=== PATIENT | female | born 1940 | race Caucasian/White ===

== ENCOUNTER → 2017-01-23 | Outpatient (REF) | payer MEDICARE, OTHER | LOC: M SFHCCLAY 14:45 | PROVIDERS: ATTEND Family Medicine | DX: E11.42 Type 2 diabetes mellitus with diabetic polyneuropathy (principal) | CPT/HCPCS: 83036; G0463 ==

== ENCOUNTER → 2017-05-15 | Outpatient (REF) | payer MEDICARE, OTHER | LOC: M SFHCCLAY 16:46 | PROVIDERS: ATTEND Family Medicine | DX: E78.00 Pure hypercholesterolemia, unspecified (principal); Z53.8 Procedure and treatment not carried out for other reasons ==

== ENCOUNTER → 2017-06-26 | Outpatient (CLI) | payer MEDICARE, OTHER ==
--- NOTE | 2017-06-26 15:18 | REPMRS ---
Patient History The patient states she had a clinical breast exam in 05/29 Patient is postmenopausal and has history of other cancer at age 71. Family history of prostate cancer in father at age 65, breast cancer in mother at age 55, endometrial cancer in paternal aunt at age 50, colorectal cancer in maternal cousin under age 50, unknown cancer in brother, and breast cancer in daughter under age 50. Digital Woman Screen Mammo: June 26, 2017 - Exam #: [id number] Bilateral CC and MLO view(s) were taken. Technologist: Angie Key, Technologist Prior study comparison: February 29, 2016, digital woman screen mammo performed at [facility] [employer] [facility] [employer] November 24, 2014, digital woman screen mammo performed at [facility] [employer] to [employer] FINDINGS: There are scattered fibroglandular densities. There has been no change in the appearance of the mammogram from the prior studies. There is a mild amount of residual fibroglandular tissue which is fairly symmetric. There is no interval development of dominant mass, architectural distortion, or clustered microcalcification suggestive of malignancy. ASSESSMENT: BI-RADS/ACR category 1 mammogram. Negative. Recommendation Routine screening mammogram in 1 year (for women over age 40). This mammogram was interpreted with the aid of an FDA-approved computer-aided dectection system. Electronically Signed By: Zen Stanford MD 06/26/17 [id number]
== END ==
LOC: M WHC 13:22
PROVIDERS: ATTEND Family Medicine
DX: Z12.31 Encounter for screening mammogram for malignant neoplasm of breast (principal); Z78.0 Asymptomatic menopausal state

== ENCOUNTER → 2018-06-28 | Outpatient (CLI) | payer MEDICARE, OTHER | LOC: M WHC 12:43 | DX: Z12.31 Encounter for screening mammogram for malignant neoplasm of breast (principal); Z80.3 Family history of malignant neoplasm of breast; Z80.42 Family history of malignant neoplasm of prostate; Z80.0 Family history of malignant neoplasm of digestive organs | CPT/HCPCS: 77067 ==

== ENCOUNTER → 2018-10-15 | Outpatient (REF) | payer MEDICARE, OTHER | LOC: M LAB REF 13:13 | PROVIDERS: ATTEND Internal Medicine Nephrology | DX: E87.1 Hypo-osmolality and hyponatremia (principal) ==

== ENCOUNTER → 2019-07-15 | Outpatient (REF) | payer MEDICARE, OTHER ==
[2019-07-16 13:28] LABS: BLOOD UREA NITROGEN 20 MG/DL (7-18); CALCIUM LEVEL 9.7 MG/DL (8.8-10.2); CARBON DIOXIDE LEVEL 29 MEQ/L (21-32); CHLORIDE LEVEL 99 MEQ/L (98-107); CREATININE FOR GFR 0.63 MG/DL (0.55-1.30); GLOMERULAR FILTRATION RATE > 60.0 (>32); GLUCOSE, FASTING 114 MG/DL (70-100); POTASSIUM SERUM 4.3 MEQ/L (3.5-5.1); SODIUM LEVEL 135 MEQ/L (136-145)
== END ==
LOC: M SFHCCLAY 14:56
PROVIDERS: ATTEND Family Medicine
DX: I11.9 Hypertensive heart disease without heart failure (principal); E11.40 Type 2 diabetes mellitus with diabetic neuropathy, unspecified

== ENCOUNTER → 2019-07-15 | Outpatient (REF) | payer MEDICARE, OTHER | LOC: M LAB REF 15:49 | PROVIDERS: ATTEND Physician Assistant Medical | DX: E55.9 Vitamin D deficiency, unspecified (principal) ==

== ENCOUNTER → 2019-08-25 | Outpatient (CLI) | payer MEDICARE, OTHER ==
--- NOTE | 2019-08-25 13:21 | REPMRS ---
Patient History The patient states she had a clinical breast exam in Patient is postmenopausal and has history of other cancer at age 71. Family history of prostate cancer at age 65 in father, breast cancer at age 55 in mother, endometrial cancer at age 50 in paternal aunt, breast cancer under age 50 in daughter, colorectal cancer under age 50 in maternal cousin, prostate cancer at age 70 in brother. No Hormone Replacement Therapy Digital Woman Screen Mammo: August 25, 2019 - Exam #: [id number] Bilateral CC and MLO view(s) were taken. Technologist: Vivian Hyman, Technologist Prior study comparison: June 28, 2018, bilateral digital woman screen mammo performed at [facility] [place]. June 26, 2017, digital woman screen mammo performed at [facility] [place]. February 29, 2016, digital woman screen mammo performed at [facility] [place]. FINDINGS: There are scattered fibroglandular densities. There has been no change in the appearance of the mammogram from the prior studies. There is a mild amount of scattered fibroglandular density which is fairly symmetric. There is no interval development of dominant mass, architectural distortion, or grouped microcalcification suggestive of malignancy. 3-D tomosynthesis shows no additional findings. Assessment: BI-RADS/ACR category 1 mammogram. Negative Mammogram. Recommendation Routine screening mammogram of both breasts in 1 year (for women over age 40). This patient's Lifetime Breast Cancer Risk is estimated at 7.8 %. This mammogram was interpreted with the aid of an FDA-approved computer-aided dectection system. Electronically Signed By: Gualberto Pino MD 08/25/19 [id number]
== END ==
LOC: M WHC 12:20
PROVIDERS: ATTEND Nurse Practitioner Family
DX: Z12.31 Encounter for screening mammogram for malignant neoplasm of breast (principal); Z78.0 Asymptomatic menopausal state; Z85.9 Personal history of malignant neoplasm, unspecified; Z80.3 Family history of malignant neoplasm of breast; Z80.0 Family history of malignant neoplasm of digestive organs

== ENCOUNTER → 2020-06-16 | Outpatient (CLI) | payer MEDICARE, OTHER ==
--- NOTE | 2020-06-16 15:32 | REP ---
INDICATION: N93.8 DUB. COMPARISON: None. TECHNIQUE: Transabdominal and transvaginal scanning were performed. FINDINGS: Uterine dimensions are normal at 6.9 x 3.7 x 4.7 cm. On transvaginal imaging, there appears to be endometrial fluid distending the endometrial cavity. No mass lesion is seen. There is some blood flow visible along the endometrium on Doppler interrogation. Endometrial neoplasia possibly with hydrometra must be suspected.. No free fluid is seen in the cul-de-sac. Visualized bladder colindres are smooth. Neither ovary could be visualized transabdominally or transvaginally. No free fluid or adnexal mass or cyst is seen. IMPRESSION: Abnormal fluid distended endometrium. 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 I cannot exclude endometrial malignancy.. <Electronically signed by Gualberto Pino > 06/16/20 1526
== END ==
LOC: M WHC 12:24
PROVIDERS: ATTEND Family Medicine
DX: N93.8 Other specified abnormal uterine and vaginal bleeding (principal)

== ENCOUNTER → 2020-08-08 | Outpatient (CLI) | payer MEDICARE, OTHER ==
[~2020-08-08] MED LIST: ACET650T15 PO; ADV250INH INH; CALC600C3 PO; CARV6.25 PO; ECOT81TA5 PO; EZET10TA21 PO; FURO20TA2 PO; METF-838 PO; MULTTAB61 PO; NEXI40CA PO; NORT10CA2 PO; OCUVTAB8 PO; PROAAER10 INH; RAME8TAB2 PO; SLOWTAB2 PO; SPIR-10 PO; TELM1TAB37 PO; VITA-122 PO; VITA500C24 PO
== END ==
LOC: M LABSMTC 08:52
PROVIDERS: ATTEND Anesthesiology
DX: Z01.812 Encounter for preprocedural laboratory examination (principal); Z20.828 Contact with and (suspected) exposure to other viral communicable diseases

== ENCOUNTER 2020-08-11 07:36 | Day surgery (SDC) | payer MEDICARE, OTHER ==
[~2020-08-11] VITALS: Ht 157.5 cm; Wt 62.1 kg
[~2020-08-11 07:36] MED LIST changes: +LR 1,000 ML IV ONE
[2020-08-11 07:59] LABS: BASO # 0.1 10^3/uL (0.0-0.2); BASO % 0.7 % (0.0-1.0); HEMATOCRIT 43.5 % (36.0-47.0); HEMOGLOBIN 13.7 g/dl (12.0-15.5); LYMPH % 29.8 % (24.0-44.0); MEAN CORPUSCULAR HEMOGLOBIN 31.3 pg (27.0-33.0); MEAN CORPUSCULAR HGB CONC 31.5 g/dl (32.0-36.5); MEAN CORPUSCULAR VOLUME 99.3 fl (80.0-96.0); MONO # 0.9 10^3/uL (0.0-0.8); MONO % 12.8 % (0.0-5.0); NEUTROPHILS # 3.8 10^3/uL (1.5-8.5); NEUTROPHILS % 56.1 % (36.0-66.0); PLATELET COUNT, AUTOMATED 284 10^3/uL (150-450); RED BLOOD COUNT 4.38 10^6/uL (4.00-5.40); WHITE BLOOD COUNT 6.8 10^3/uL (4.0-10.0)
[2020-08-11] MEDS ORDERED: LIDOCAINE 2% 100MG/5ML SDV (FOR ANES.) As Ordered ONE (09:04)
[2020-08-11] MEDS ORDERED: fentaNYL 100 MCG/2 ML INJECTION (J3010) As Ordered ONE ×2 (09:04→09:56)
[2020-08-11] MEDS ORDERED: KETOROLAC 60MG 2ML VIAL As Ordered ONE (09:04)
[2020-08-11] MEDS ORDERED: dexameTHASONE 4 MG/ML 1ML VIAL (J1100 PER 1MG) As Ordered ONE (09:04)
[2020-08-11] MEDS ORDERED: ONDANSETRON 4MG/2ML VIAL As Ordered ONE (09:04)
[2020-08-11] MEDS ORDERED: propofoL 200 MG/20 ML VIAL As Ordered ONE (09:04)
[2020-08-11] MEDS ORDERED: ePHEDrine SULFATE 25 MG/5 ML(5MG/ML) SYRINGE As Ordered ONE (09:17)
--- NOTE | 2020-08-11 09:34 | ROOPDOC ---
[facility] Report Of Operation Report of Operation DATE OF PROCEDURE: 08/11/20 DATE OF PROCEDURE: PREPROCEDURE DIAGNOSES: postmenopausal bleeding. POSTPROCEDURE DIAGNOSES: Same. PROCEDURE: Hysteroscopy, D&C. SURGEON: Ja Song MD ANESTHESIA: Gen. via LMA. ESTIMATED BLOOD LOSS: Approximately 10 mL. COMPLICATIONS: None. FINDINGS: Areas of thick, irregular endometrial tissue at the fundus, and posterior uterus; mildly enlarged uterus, cervical stenosis PROCEDURE NOTE: Patient taken to the operative room where LMA anesthesia was induced. She was prepped draped sterile fashion in dorsal lithotomy position. The catheter was inserted into the bladder. Speculum was placed in the vagina. The anterior lip of the cervix was grasped with tenaculum. Cervix dilated with tapered dilators. Lacrimal probes werer used to initiate the dilation due to cervical stenosis. A diagnostic hysteroscope using normal saline as the distention media was inserted through the internal os. Visualization the endometrial cavity revealed findings noted above. Sharp curettage was performed. Good hemostasis was noted. All instruments removed. Sponges counts are correct. JA SONG MD Aug 11, 2020 09:33
[2020-08-11] MEDS ORDERED: ACETAMINOPHEN 500 MG TAB As Ordered ONE (09:58)
[2020-08-11] MEDS ORDERED: METOCLOPRAMIDE INJ 10MG/2ML VIAL (J2765 PER 1) IV PRN (10:30)
[2020-08-11] MEDS ORDERED: fentaNYL 100 MCG/2 ML INJECTION (J3010) IV PRN (10:30)
[2020-08-11] MEDS ORDERED: LR 1,000 ML IV SCH ×2 (10:30)
[2020-08-11] MEDS ORDERED: PERCOCET 5MG/325MG TAB PO PRN (10:30)
[2020-08-11] MEDS ORDERED: ONDANSETRON 4MG/2ML VIAL IV PRN (10:30)
[2020-08-11] MEDS ORDERED: ACETAMINOPHEN 500 MG TAB PO ONE (10:30)
[2020-08-11] MEDS ORDERED: LABETALOL 100MG/20ML VIAL As Ordered ONE (10:33)
[2020-08-11] MEDS: LABETALOL 100MG/20ML VIAL IV SCH ×4 (10:35→10:50)
[2020-08-11 10:50] VITALS: BP 195/91
[2020-08-11 12:16] VITALS: BP 158/86
== END 2020-08-11 12:22 | disposition home or self-care (01) ==
LOC: M SDC 07:36
PROVIDERS: ATTEND Specialist
DX: N95.0 Postmenopausal bleeding (principal); I10 Essential (primary) hypertension; E11.9 Type 2 diabetes mellitus without complications; E78.5 Hyperlipidemia, unspecified; H18.519 Endothelial corneal dystrophy, unspecified eye; J45.909 Unspecified asthma, uncomplicated; G62.9 Polyneuropathy, unspecified; K21.9 Gastro-esophageal reflux disease without esophagitis; M48.00 Spinal stenosis, site unspecified; R23.3 Spontaneous ecchymoses; Z79.84 Long term (current) use of oral hypoglycemic drugs; Z79.899 Other long term (current) drug therapy; Z85.828 Personal history of other malignant neoplasm of skin; Z88.2 Allergy status to sulfonamides; Z88.5 Allergy status to narcotic agent; Z88.8 Allergy status to other drugs, medicaments and biological substances; Z95.5 Presence of coronary angioplasty implant and graft
CPT/HCPCS: 36415; 58558; 85025; 88305; J1100; J1885; J2405; J3010

== ENCOUNTER → 2020-09-09 | Outpatient (CLI) | payer MEDICARE, OTHER ==
[~2020-09-09] MED LIST changes: -LR 1,000 ML IV ONE
--- NOTE | 2020-09-09 14:11 | REPMRS ---
Patient History The patient states she had a clinical breast exam in August 2020. Patient is postmenopausal, has history of endometrial cancer at age 80, and has history of other cancer at age 71. Family history of prostate cancer at age 65 in father, breast cancer at age 55 in mother, endometrial cancer at age 50 in paternal aunt, breast cancer under age 50 in daughter, colorectal cancer under age 50 in maternal cousin, prostate cancer at age 70 in brother. No Hormone Replacement Therapy Digital Woman Screen Mammo: September 09, 2020 - Exam #: [id number] Bilateral CC and MLO view(s) were taken. Technologist: Irlanda Shaikh, Technologist Prior study comparison: August 25, 2019, bilateral digital woman screen mammo performed at [facility]. June 28, 2018, bilateral digital woman screen mammo performed at [facility]. June 26, 2017, digital woman screen mammo performed at [facility]. FINDINGS: There are scattered fibroglandular densities. The Volpara volumetric breast density category is:B. There has been no change in the appearance of the mammogram from the prior studies. There is a mild amount of scattered fibroglandular density which is fairly symmetric. There is no interval development of dominant mass, architectural distortion, or grouped microcalcification suggestive of malignancy. 3-D tomosynthesis shows no additional findings. Assessment: BI-RADS/ACR category 1 mammogram. Negative Mammogram. Recommendation Routine screening mammogram of both breasts in 1 year (for women over age 40). This patient's [facility] Lifetime Breast Cancer Risk is estimated at 6.4 %. This mammogram was interpreted with the aid of an FDA-approved computer-aided dectection system. Electronically Signed By: Gualberto Pino MD 09/09/20 [id number]
== END ==
LOC: M WHC 13:04
PROVIDERS: ATTEND Family Medicine
DX: Z12.31 Encounter for screening mammogram for malignant neoplasm of breast (principal); Z85.42 Personal history of malignant neoplasm of other parts of uterus; Z80.3 Family history of malignant neoplasm of breast

== ENCOUNTER → 2021-03-09 | Outpatient (CLI) | payer MEDICARE, OTHER ==
[~2021-03-09] MED LIST changes: +GASTROGRAFIN SOLUTION 30ML (Q9963) As Ordered ONE; +ISOVUE-370 76% 100ML VIAL As Ordered ONE; -VITA-122 PO; +VITA-168 PO
--- NOTE | 2021-03-09 14:49 | REP ---
INDICATION: RESTAGE ENDOMETRIAL CA. COMPARISON: 05/01/2008. I have not been made aware of a more recent prior examination. TECHNIQUE: Oral Gastrografin mixture per our bowel contrast protocol followed by bolus 100 mL Isovue 370 and scanning through the abdomen and pelvis. FINDINGS: CT abdomen: Lung bases without acute finding. There is a stable Bochdalek's hernia posteriorly at the left lung base. Heart size not enlarged there is no pericardial thickening or effusion. There is moderate-sized hiatal hernia evident. Liver is without focal hepatic mass or biliary dilatation is not grossly enlarged. There are few calcifications in the spleen but no splenomegaly. Gallbladder shows no calcified stone or mass. Pancreas was unremarkable. Adrenal glands are intact kidneys show symmetric pattern of enhancement and a couple of small cysts on the left with a large extrarenal pelvis and some mild hydronephrosis. This is increased in size since the previous study. No definite stone or solid mass in the kidneys or that extrarenal pelvis. The aorta is calcified tortuous but without aneurysm. No periaortic, other retroperitoneal or mesenteric pathologic sized lymphadenopathy. Stool throughout the colon from rectum to cecum is in moderate to the to large volumes representing some degree of constipation oral contrast seen throughout small bowel loops without dilatation, wall thickening or mass no mesenteric edema. No perforation or free air in the abdomen or pelvis. Is no abdominal or pelvic ascites. Bone windows show advanced degenerative disc disease with vacuum phenomenon and spondylosis as well as facet arthropathy in the lower lumbar spine. No acute compression deformity or destructive lesion. Visualized ribs intact. CT pelvis: The sacrum, SI joints, pelvis and hips show some mild degenerative changes without destructive lesion or fractures. Small bowel loops in the deep pelvis unremarkable. There are no inflammatory changes about the cecum. Uterus is absent the vaginal cuff is intact. Bladder is nearly empty but no wall thickening, mass or stone evident. I see no pelvic or adnexal mass. There is no inguinal or pelvic lymphadenopathy. Omental fat at distends the inguinal canal on the left but no bowel herniation. No ventral hernia. IMPRESSION: 1. Status post hysterectomy without the pelvic or adnexal mass. There is no abdominal or pelvic adenopathy, ascites, metastatic disease in the liver or other acute finding. No CT evidence to suggest metastatic disease at this time. 2. Moderate-sized hiatal hernia. A Bochdalek's hernia along the posterior margin of the diaphragm in the left base and chronic degenerative changes in the spine are again seen. <Electronically signed by Jose Enrique Lawson > 03/09/21 [id number]
== END ==
LOC: M RAD 09:55
PROVIDERS: ATTEND Nurse Practitioner
DX: C54.1 Malignant neoplasm of endometrium (principal)
CPT/HCPCS: 74177; Q9963; Q9967

== ENCOUNTER → 2021-07-14 | Outpatient (REF) | payer MEDICARE, OTHER ==
[~2021-07-14] MED LIST changes: -GASTROGRAFIN SOLUTION 30ML (Q9963) As Ordered ONE; -ISOVUE-370 76% 100ML VIAL As Ordered ONE
== END ==
LOC: M SFHCCLAY 11:15
PROVIDERS: ATTEND Family Medicine
DX: R19.7 Diarrhea, unspecified (principal)

== ENCOUNTER 2021-08-10 13:04 | Outpatient (CLI) | payer MEDICARE, OTHER ==
[~2021-08-10] VITALS: Ht 157.5 cm; Wt 66.3 kg
[~2021-08-10 13:04] MED LIST changes: +diphenhydrAMINE 50MG/ML VIAL (J1200) IM PRN
[2021-08-10] MEDS ORDERED: BEZLOTOXUMAB in NS 100 ML OVER 1 HR IV ONE (13:30)
[2021-08-10 13:35] VITALS: BP 165/83
[2021-08-10 15:20] VITALS: BP 135/98
== END 2021-08-10 15:40 | disposition home or self-care (01) ==
LOC: M INFU 13:04
PROVIDERS: ATTEND Family Medicine
DX: A04.71 Enterocolitis due to Clostridium difficile, recurrent (principal); Z88.2 Allergy status to sulfonamides; Z88.8 Allergy status to other drugs, medicaments and biological substances
CPT/HCPCS: 96365; J0565

== ENCOUNTER → 2021-10-12 | Outpatient (CLI) | payer MEDICARE, OTHER ==
[~2021-10-12] MED LIST changes: -diphenhydrAMINE 50MG/ML VIAL (J1200) IM PRN
== END ==
LOC: M WHC 12:12
PROVIDERS: ATTEND Family Medicine
DX: R92.2 Inconclusive mammogram (principal); N63.21 Unspecified lump in the left breast, upper outer quadrant

== ENCOUNTER → 2021-10-26 | Outpatient (CLI) | payer MEDICARE, OTHER | LOC: M WHC 12:17 | PROVIDERS: ATTEND Family Medicine | DX: R92.2 Inconclusive mammogram (principal); N63.21 Unspecified lump in the left breast, upper outer quadrant | CPT/HCPCS: 77065; G0279 ==

== ENCOUNTER → 2022-01-11 | Outpatient (REF) | payer MEDICARE, OTHER ==
[2022-01-11 22:00] LABS: APPEARANCE, URINE HAZY (CLEAR); BACTERIA, URINE AUTO 1+ (NEGATIVE); BILIRUBIN, URINE AUTO NEGATIVE (NEGATIVE); BLOOD, URINE BLOOD NEGATIVE (NEGATIVE); COLOR, URINE YELLOW (YELLOW); GLUCOSE, URINE (UA) AUTO NEGATIVE (NEGATIVE); KETONE, URINE AUTO NEGATIVE (NEGATIVE); LEUKOCYTE ESTERASE, URINE AUTO TRACE (NEGATIVE); MUCUS, URINE SMALL (NEGATIVE); NITRITE, URINE AUTO NEGATIVE (NEGATIVE); PROTEIN, URINE AUTO 1+ mg/dL (NEGATIVE); RBC, URINE AUTO 2 /HPF (0-3); SPECIFIC GRAVITY URINE AUTO 1.026 (1.002-1.035); SQUAMOUS EPITHELIAL CELL UR AU 0 /HPF (0-6); UROBILINOGEN, URINE AUTO 0.2 mg/dL (0.0-2.0); WBC, URINE AUTO 14 /HPF (0-3)
== END ==
LOC: M LAB REF 21:09
PROVIDERS: ATTEND Physician Assistant
DX: N39.0 Urinary tract infection, site not specified (principal)

== ENCOUNTER → 2022-01-17 | Outpatient (REF) | payer MEDICARE, OTHER ==
[2022-01-18 12:43] LABS: CLOSTRIDIUM DIFFICILE PCR NEGATIVE (NEGATIVE)
== END ==
LOC: M SFHCPLAZ 11:12
PROVIDERS: ATTEND Internal Medicine Infectious Disease
DX: A04.72 Enterocolitis due to Clostridium difficile, not specified as recurrent (principal)

== ENCOUNTER → 2022-01-23 | Outpatient (REF) | payer MEDICARE, OTHER | LOC: M SFHCCLAY 11:55 | PROVIDERS: ATTEND Nurse Practitioner Family | DX: N30.00 Acute cystitis without hematuria (principal) ==

== ENCOUNTER → 2022-01-23 | Outpatient (CLI) | payer MEDICARE, OTHER ==
[2022-01-23 14:41] LABS: HEMATOCRIT 40.1 % (36.0-47.0); HEMOGLOBIN 13.7 g/dl (12.0-15.5); MEAN CORPUSCULAR HEMOGLOBIN 33.5 pg (27.0-33.0); MEAN CORPUSCULAR HGB CONC 34.2 g/dl (32.0-36.5); PLATELET COUNT, AUTOMATED 299 10^3/uL (150-450); RED BLOOD COUNT 4.09 10^6/uL (4.00-5.40); WHITE BLOOD COUNT 8.2 10^3/uL (4.0-10.0)
[2022-01-23 15:13] LABS: ALBUMIN 3.8 GM/DL (3.2-5.2); ALT/SGPT 31 U/L (12-78); BILIRUBIN,TOTAL 0.4 MG/DL (0.2-1.0); BLOOD UREA NITROGEN 19 MG/DL (7-18); CALCIUM LEVEL 10.1 MG/DL (8.8-10.2); CARBON DIOXIDE LEVEL 25 MEQ/L (21-32); CHLORIDE LEVEL 99 MEQ/L (98-107); CREATININE FOR GFR 0.63 MG/DL (0.55-1.30); GLOMERULAR FILTRATION RATE > 60.0 (>32); GLUCOSE, FASTING 107 MG/DL (70-100); POTASSIUM SERUM 4.4 MEQ/L (3.5-5.1); SODIUM LEVEL 131 MEQ/L (136-145); TOTAL PROTEIN 7.3 GM/DL (6.4-8.2)
== END ==
LOC: M RAD 13:15
PROVIDERS: ATTEND Nurse Practitioner Family
DX: N13.30 Unspecified hydronephrosis (principal); Q61.02 Congenital multiple renal cysts; N30.00 Acute cystitis without hematuria

== ENCOUNTER → 2022-02-01 | Outpatient (REF) | payer MEDICARE, OTHER ==
[2022-02-01 18:35] LABS: APPEARANCE, URINE HAZY (CLEAR); BACTERIA, URINE AUTO NEGATIVE (NEGATIVE); BILIRUBIN, URINE AUTO NEGATIVE (NEGATIVE); BLOOD, URINE BLOOD NEGATIVE (NEGATIVE); COLOR, URINE AMBER (YELLOW); GLUCOSE, URINE (UA) AUTO NEGATIVE (NEGATIVE); KETONE, URINE AUTO TRACE mg/dL (NEGATIVE); LEUKOCYTE ESTERASE, URINE AUTO NEGATIVE (NEGATIVE); MUCUS, URINE SMALL (NEGATIVE); NITRITE, URINE AUTO NEGATIVE (NEGATIVE); PROTEIN, URINE AUTO NEGATIVE (NEGATIVE); RBC, URINE AUTO 1 /HPF (0-3); SPECIFIC GRAVITY URINE AUTO 1.027 (1.002-1.035); SQUAMOUS EPITHELIAL CELL UR AU 0 /HPF (0-6); UROBILINOGEN, URINE AUTO 0.2 mg/dL (0.0-2.0); WBC, URINE AUTO 1 /HPF (0-3)
== END ==
LOC: M SMT 16:56
PROVIDERS: ATTEND Nurse Practitioner Women's Health
DX: N20.0 Calculus of kidney (principal)

== ENCOUNTER → 2022-02-14 | Outpatient (CLI) | payer MEDICARE, OTHER | LOC: M PLAIMG 12:29 | PROVIDERS: ATTEND Nurse Practitioner Women's Health | DX: N20.0 Calculus of kidney (principal); N28.1 Cyst of kidney, acquired; Z90.710 Acquired absence of both cervix and uterus ==

== ENCOUNTER → 2022-04-03 | Outpatient (CLI) | payer MEDICARE, OTHER | LOC: M CARPUL 13:07 | PROVIDERS: ATTEND Family Medicine | DX: J45.909 Unspecified asthma, uncomplicated (principal) ==

== ENCOUNTER → 2022-07-21 | Outpatient (CLI) | payer MEDICARE, OTHER | LOC: M RAD 08:22 | PROVIDERS: ATTEND Nurse Practitioner Family | DX: I10 Essential (primary) hypertension (principal) ==

== ENCOUNTER → 2022-08-31 | Outpatient (CLI) | payer MEDICARE, OTHER ==
[2022-08-31 16:26] LABS: BLOOD UREA NITROGEN 19 MG/DL (9-23); CREATININE FOR GFR 0.57 MG/DL (0.55-1.30); GLOMERULAR FILTRATION RATE > 60.0 (>32)
== END ==
LOC: M LAB 15:02
PROVIDERS: ATTEND Surgery
DX: I15.0 Renovascular hypertension (principal)

== ENCOUNTER → 2022-09-05 | Outpatient (CLI) | payer MEDICARE, OTHER ==
[~2022-09-05] MED LIST changes: +ISOVUE-370 76% 100ML VIAL As Ordered ONE
== END ==
LOC: M RAD 17:13
PROVIDERS: ATTEND Surgery Vascular Surgery
DX: I15.0 Renovascular hypertension (principal)
CPT/HCPCS: 74174; Q9967

== ENCOUNTER 2022-10-10 09:20 | Emergency (ER) | payer MEDICARE, OTHER ==
[~2022-10-10] VITALS: Ht 154.9 cm; Wt 70.0 kg
[~2022-10-10 09:20] MED LIST changes: -HEPARIN 1,000UNITS/ML 10ML VIAL (FOR RADIOLOGY & DIALYSIS ONLY) As Ordered ONE; -ISOVUE-300 61% 100ML VIAL As Ordered ONE; -LIDOCAINE 1% MDV 20ML VIAL As Ordered ONE; -MIDAZOLAM INJ 2MG/2ML VIAL As Ordered ONE; -NITROGLYCERIN 0.4MG SUBL TABLET As Ordered ONE; -NS 1,000 ML IV SCH; -ceFAZolin 2 GM/D5W 50 ML IV BAG As Ordered ONE; -ceFAZolin SOD 2 GM in IV 1 EA IV ONE; -diphenhydrAMINE 50MG/ML VIAL As Ordered ONE; -fentaNYL 100 MCG/2 ML INJECTION As Ordered ONE; -hydrALAZINE 20MG/ML 1ML VIAL As Ordered ONE; -hydrALAZINE 20MG/ML 1ML VIAL IV STA
[2022-10-10] MEDS ORDERED: NS 500 ML IV ONE (09:30)
[2022-10-10 10:01] LABS: BASO # 0.1 10^3/uL (0.0-0.2); BASO % 0.7 % (0.0-1.0); LYMPH # 1.7 10^3/uL (1.5-5.0); LYMPH % 25.3 % (24.0-44.0); MEAN CORPUSCULAR HEMOGLOBIN 31.8 pg (27.0-33.0); MEAN CORPUSCULAR HGB CONC 33.3 g/dl (32.0-36.5); MEAN CORPUSCULAR VOLUME 95.3 fl (80.0-96.0); MONO # 0.8 10^3/uL (0.0-0.8); MONO % 12.3 % (2.0-8.0); NEUTROPHILS # 4.2 10^3/uL (1.5-8.5); NEUTROPHILS % 61.3 % (36.0-66.0); PLATELET COUNT, AUTOMATED 249 10^3/uL (150-450); RED BLOOD COUNT 3.59 10^6/uL (4.00-5.40); WHITE BLOOD COUNT 6.8 10^3/uL (4.0-10.0)
[2022-10-10 10:03] LABS: HEMATOCRIT 34.2 % (36.0-47.0); HEMOGLOBIN 11.4 g/dl (12.0-15.5)
[2022-10-10 10:13] LABS: CK-MB VALUE MASS 5.4 NG/ML (<3.6)
[2022-10-10 10:14] LABS: CPK CREATINE PHOSPHOKINASE 171 U/L (34-145); MB/CK RELATIVE INDEX 3.15 (< OR =4)
[2022-10-10 10:15] LABS: BLOOD UREA NITROGEN 24 MG/DL (9-23); CALCIUM LEVEL 8.4 MG/DL (8.3-10.6); CARBON DIOXIDE LEVEL 24 MMOL/L (20-31); CHLORIDE LEVEL 106 MMOL/L (98-107); CREATININE FOR GFR 0.54 MG/DL (0.55-1.30); GLOMERULAR FILTRATION RATE > 60.0 (>32); GLUCOSE, FASTING 142 MG/DL (74-106); POTASSIUM SERUM 3.6 MMOL/L (3.5-5.1); SODIUM LEVEL 138 MMOL/L (136-145)
[2022-10-10] MEDS ORDERED: ATROPINE SULF 1MG/10ML SYRINGE ONE (10:43)
[2022-10-10 12:00] VITALS: BP 186/89
[2022-10-18] MEDS ORDERED: MECL1TAB31 PO (10:25)
[2022-10-18] MEDS ORDERED: NITR0.4S14 PO (10:25)
[2022-10-18] MEDS ORDERED: ALBU90AE INH (10:25)
[2022-10-18] MEDS ORDERED: CLOP75TA2 PO (10:25)
[2022-10-18] MEDS ORDERED: MICA80TA PO (10:25)
[2022-10-18] MEDS ORDERED: FAMO20TA PO (10:25)
[2022-10-18] MEDS ORDERED: DOCU100C16 PO (10:25)
[2022-11-06] MEDS ORDERED: HYDROCORTISONE 100MG/2ML VIAL IV ONE (17:10)
== END 2022-10-10 12:35 | disposition home or self-care (01) ==
LOC: M ED 09:20
DX: T88.7XXA Unspecified adverse effect of drug or medicament, initial encounter (principal); I95.2 Hypotension due to drugs; I12.9 Hypertensive chronic kidney disease with stage 1 through stage 4 chronic kidney disease, or unspecified chronic kidney disease; I25.9 Chronic ischemic heart disease, unspecified; E11.9 Type 2 diabetes mellitus without complications; J45.909 Unspecified asthma, uncomplicated; K21.9 Gastro-esophageal reflux disease without esophagitis; Z86.79 Personal history of other diseases of the circulatory system; Z88.2 Allergy status to sulfonamides; Z88.5 Allergy status to narcotic agent; Z88.8 Allergy status to other drugs, medicaments and biological substances; Z79.52 Long term (current) use of systemic steroids; Z79.810 Long term (current) use of selective estrogen receptor modulators (SERMs); Z79.4 Long term (current) use of insulin; Z79.899 Other long term (current) drug therapy; I70.1 Atherosclerosis of renal artery; M06.9 Rheumatoid arthritis, unspecified
CPT/HCPCS: 36415; 71045; 80048; 82550; 82553; 84484; 85025; 85027; 85610; 86850; 86900; 86901; 87635; 93005; 93041; 94760; 99285; J0360; J0461; J0690; Q9967

== ENCOUNTER → 2022-10-10 | Outpatient (CLI) | payer MEDICARE, OTHER ==
[~2022-10-10] MED LIST changes: +HEPARIN 1,000UNITS/ML 10ML VIAL (FOR RADIOLOGY & DIALYSIS ONLY) As Ordered ONE; +ISOVUE-300 61% 100ML VIAL As Ordered ONE; -ISOVUE-370 76% 100ML VIAL As Ordered ONE; +LIDOCAINE 1% MDV 20ML VIAL As Ordered ONE; +MIDAZOLAM INJ 2MG/2ML VIAL As Ordered ONE; +NITROGLYCERIN 0.4MG SUBL TABLET As Ordered ONE; +NS 1,000 ML IV SCH; +ceFAZolin 2 GM/D5W 50 ML IV BAG As Ordered ONE; +ceFAZolin SOD 2 GM in IV 1 EA IV ONE; +diphenhydrAMINE 50MG/ML VIAL As Ordered ONE; +fentaNYL 100 MCG/2 ML INJECTION As Ordered ONE; +hydrALAZINE 20MG/ML 1ML VIAL As Ordered ONE; +hydrALAZINE 20MG/ML 1ML VIAL IV STA
[2022-10-10 08:06] LABS: HEMATOCRIT 41.4 % (36.0-47.0); HEMOGLOBIN 13.5 g/dl (12.0-15.5); MEAN CORPUSCULAR HEMOGLOBIN 31.5 pg (27.0-33.0); MEAN CORPUSCULAR HGB CONC 32.6 g/dl (32.0-36.5); MEAN CORPUSCULAR VOLUME 96.5 fl (80.0-96.0); PLATELET COUNT, AUTOMATED 283 10^3/uL (150-450); RED BLOOD COUNT 4.29 10^6/uL (4.00-5.40); WHITE BLOOD COUNT 6.5 10^3/uL (4.0-10.0)
[2022-10-10 08:19] LABS: INR 0.89; PROTHROMBIN TIME 12.2 SECONDS (12.5-14.5)
[2022-10-10 08:32] LABS: BLOOD UREA NITROGEN 19 MG/DL (9-23); CALCIUM LEVEL 9.5 MG/DL (8.3-10.6); CARBON DIOXIDE LEVEL 26 MMOL/L (20-31); CHLORIDE LEVEL 102 MMOL/L (98-107); GLOMERULAR FILTRATION RATE > 60.0 (>32); GLUCOSE, FASTING 117 MG/DL (74-106); POTASSIUM SERUM 3.7 MMOL/L (3.5-5.1); SODIUM LEVEL 136 MMOL/L (136-145)
[2022-10-10 08:50] VITALS: BP 227/98
[2022-10-10 12:15] VITALS: BP 152/90
== END ==
LOC: M IRPRO 07:06
PROVIDERS: ATTEND Surgery Vascular Surgery
DX: I15.0 Renovascular hypertension (principal); I70.1 Atherosclerosis of renal artery; E11.9 Type 2 diabetes mellitus without complications; M06.9 Rheumatoid arthritis, unspecified

== ENCOUNTER 2022-11-06 10:01 | Inpatient (IN) | payer MEDICARE, OTHER ==
[~2022-11-06] VITALS: Ht 157.5 cm; Wt 73.2 kg
[2022-11-06] VITALS (24 sets, daily range): BP systolic 80–173; BP diastolic 44–88
[~2022-11-06 10:01] MED LIST changes: +ALBU90AE INH; +CLOP75TA2 PO; +DOCU100C16 PO; +FAMO20TA PO; +LIDOCAINE 2% 100MG/5ML SDV (FOR ANES.) As Ordered ONE; +LR 1,000 ML IV SCH; +MECL1TAB31 PO; +MICA80TA PO; +MIDAZOLAM INJ 2MG/2ML VIAL As Ordered ONE; +NITR0.4S14 PO; +ONDANSETRON 4MG 2ML VIAL As Ordered ONE; +ROCURONIUM BROMIDE 50MG/5ML VIAL As Ordered ONE; +ceFAZolin SOD 2 GM in IV 1 EA IV ONE; +fentaNYL 100 MCG/2 ML INJECTION As Ordered ONE; +propofoL 200 MG/20 ML VIAL As Ordered ONE
[2022-11-06 10:40] LABS: HEMATOCRIT 41.3 % (36.0-47.0); HEMOGLOBIN 13.2 g/dl (12.0-15.5); MEAN CORPUSCULAR HEMOGLOBIN 30.8 pg (27.0-33.0); MEAN CORPUSCULAR VOLUME 96.3 fl (80.0-96.0); PLATELET COUNT, AUTOMATED 280 10^3/uL (150-450); RED BLOOD COUNT 4.29 10^6/uL (4.00-5.40); WHITE BLOOD COUNT 6.4 10^3/uL (4.0-10.0)
[2022-11-06 10:50] LABS: INR 0.91; PARTIAL THROMBOPLASTIN TIME 24.1 SECONDS (24.8-34.2); PROTHROMBIN TIME 12.5 SECONDS (12.5-14.5)
[2022-11-06 11:08] LABS: BLOOD UREA NITROGEN 17 MG/DL (9-23); CALCIUM LEVEL 9.1 MG/DL (8.3-10.6); CARBON DIOXIDE LEVEL 27 MMOL/L (20-31); CHLORIDE LEVEL 104 MMOL/L (98-107); CREATININE FOR GFR 0.49 MG/DL (0.55-1.30); GLOMERULAR FILTRATION RATE > 60.0 (>32); GLUCOSE, FASTING 115 MG/DL (74-106); SODIUM LEVEL 137 MMOL/L (136-145)
[2022-11-06] MEDS ORDERED: LIDOCAINE 1% SDV 30ML VIAL As Ordered ONE ×2 (11:57→15:47)
[2022-11-06] MEDS ORDERED: BUPIVACAINE/EPIN 0.5% 30ML VIAL As Ordered ONE (11:57)
[2022-11-06] MEDS ORDERED: HEPARIN SOD (PORCINE) 5000UNITS/ML 1ML VIAL/SYRINGE As Ordered ONE ×4 (11:58→15:39)
[2022-11-06] MEDS ORDERED: propofoL 200 MG/20 ML VIAL As Ordered ONE ×2 (12:30→15:43)
[2022-11-06] MEDS ORDERED: KETAMINE HCL 200MG/20ML VIAL As Ordered ONE (13:22)
[2022-11-06] MEDS ORDERED: ISOVUE-300 61% 100ML VIAL As Ordered ONE ×2 (13:39→13:58)
[2022-11-06] MEDS ORDERED: ePHEDrine SULFATE 25 MG/5 ML(5MG/ML) SYRINGE As Ordered ONE (13:53)
[2022-11-06] MEDS ORDERED: PHENYLephrine 500MCG 5ML (100MCG/ML) SYRINGE As Ordered ONE (13:53)
[2022-11-06] MEDS ORDERED: fentaNYL 100 MCG/2 ML INJECTION IV PRN (14:55)
[2022-11-06] MEDS ORDERED: LR 1,000 ML IV SCH (14:55)
[2022-11-06] MEDS ORDERED: oxyCODONE 5MG TAB PO PRN (14:55)
[2022-11-06] MEDS ORDERED: ONDANSETRON 4MG 2ML VIAL IV PRN (14:55)
[2022-11-06] MEDS ORDERED: HYDROMORPHONE HCL 0.5 MG/ 0.5 ML SYRINGE IV PRN (14:55)
[2022-11-06] MEDS ORDERED: ATROPINE SULF 0.4 MG/ML 1ML VIAL As Ordered ONE (15:03)
[2022-11-06] MEDS ORDERED: fentaNYL 100 MCG/2 ML INJECTION As Ordered ONE (15:05)
[2022-11-06] MEDS ORDERED: LIDOCAINE 2% 100MG/5ML SDV (FOR ANES.) As Ordered ONE (15:06)
[2022-11-06] MEDS ORDERED: PHENYLEPHRINE 10MG/ML 1ML VIAL As Ordered ONE ×2 (15:24→15:26)
[2022-11-06] MEDS ORDERED: EPINEPHrine INJ 1 MG/ML 1ML AMP As Ordered ONE (15:30)
[2022-11-06] MEDS ORDERED: EPINEPHrine 1MG/10ML SYRINGE 1.5IN As Ordered ONE (15:30)
[2022-11-06] MEDS ORDERED: HYDROmorphone HCL 2MG/ML 1ML VIAL As Ordered ONE (15:33)
[2022-11-06] MEDS ORDERED: HEPARIN SOD (PORCINE) 5000UNITS/ML 1ML VIAL/SYRINGE ONE (15:39)
[2022-11-06] MEDS ORDERED: THROMBIN 20,000 UNITS KIT As Ordered ONE ×2 (15:51→16:02)
[2022-11-06] MEDS ORDERED: NOREPINEPHRINE 4MG/4ML AMP As Ordered ONE (16:39)
[2022-11-06] MEDS ORDERED: HYDROCORTISONE 100MG/2ML VIAL IV ONE (17:10)
[2022-11-06] MEDS ORDERED: MIDAZOLAM INJ 2MG/2ML VIAL As Ordered ONE (17:14)
[2022-11-06] MEDS: MIDAZOLAM INJ 2MG/2ML VIAL IV PRN ×2 (17:15→17:51)
[2022-11-06 17:31] LABS: HEMATOCRIT 31.6 % (36.0-47.0); MEAN CORPUSCULAR HEMOGLOBIN 31.4 pg (27.0-33.0); MEAN CORPUSCULAR HGB CONC 32.9 g/dl (32.0-36.5); MEAN CORPUSCULAR VOLUME 95.5 fl (80.0-96.0); PLATELET COUNT, AUTOMATED 196 10^3/uL (150-450); RED BLOOD COUNT 3.31 10^6/uL (4.00-5.40)
[2022-11-06] MEDS ORDERED: MIDAZOLAM 100MG/100ML-0.9%NACL 100 MG in IV 1 EA IV SCH (17:40)
[2022-11-06] MEDS ORDERED: ALBUTEROL SULFATE 2.5MG/0.5ML INH NEB SOLN NEB PRN (17:40)
[2022-11-06 17:55] LABS: CARBON DIOXIDE LEVEL 19 MMOL/L (20-31); CHLORIDE LEVEL 109 MMOL/L (98-107); POTASSIUM SERUM 3.9 MMOL/L (3.5-5.1); SODIUM LEVEL 137 MMOL/L (136-145)
[2022-11-06 18:03] LABS: ALKALINE PHOSPHATASE 65 U/L (46-116); ALT/SGPT 21 U/L (7.0-40); AST/SGOT 35 U/L (<34); BILIRUBIN,TOTAL 0.3 MG/DL (0.3-1.2); BLOOD UREA NITROGEN 12 MG/DL (9-23); CALCIUM LEVEL 6.8 MG/DL (8.3-10.6); GLOMERULAR FILTRATION RATE > 60.0 (>32); GLUCOSE, FASTING 235 MG/DL (74-106); MAGNESIUM LEVEL 1.4 MG/DL (1.8-2.4); TOTAL PROTEIN 3.7 G/DL (5.7-8.2)
[2022-11-06 18:14] LABS: HEMOGLOBIN 10.4 g/dl (12.0-15.5)
[2022-11-06 18:25] LABS: BASO % 0.2 % (0.0-1.0); LYMPH % 12.1 % (24.0-44.0); MONO # 0.7 10^3/uL (0.0-0.8); MONO % 8.1 % (2.0-8.0); NEUTROPHILS # 6.5 10^3/uL (1.5-8.5); NEUTROPHILS % 79.1 % (36.0-66.0)
[2022-11-06 18:31] LABS: PLATELET ESTIMATE NORMAL (NORMAL)
[2022-11-06 18:33] LABS: PHOSPHORUS LEVEL 3.9 MG/DL (2.4-5.1)
[2022-11-06 18:41] LABS: ABG BASE EXCESS -3.2 (-2.0-2.0); ABG HCO3 21.4 MEQ/L (22.0-26.0); ABG O2 SATURATION 97.9 % (95.0-99.0); ABG PARTIAL PRESSURE CO2 36.8 mmHg (35.0-45.0); ABG PARTIAL PRESSURE O2 113.4 mmHg (75.0-100.0); ABG STANDARD HCO3 21.8 MEQ/L (22.0-26.0); ABG TOTAL CO2 22.5 MEQ/L (23.0-31.0); ABG pH (ARTERIAL) 7.382 UNITS (7.350-7.450)
[2022-11-06] MEDS ORDERED: PIPERACILLIN/TAZOBACTAM SOD 3.375 GM in D5W MINI-BAG PLUS 50 ML IV SCH (18:50)
[2022-11-06] MEDS ORDERED: CALCIUM GLUCONATE 1,000 MG in D5W MINI-BAG PLUS 100 ML IV ONE (19:00)
[2022-11-06] MEDS: EPINEPHrine HCL INJ 1 MG in D5W 240 ML IV SCH (19:00)
[2022-11-06] MEDS ORDERED: PHENYLEPHRINE HCL INJ 50 MG in D5W 495 ML IV SCH (19:00)
[2022-11-06 19:05] LABS: INR 1.09; PROTHROMBIN TIME 14.3 SECONDS (12.5-14.5)
[2022-11-06] MEDS ORDERED: MAG SULF 1GM/100ML (MAG RUN) 1 GM in IV 1 EA IV ONE (20:00)
[2022-11-06] MEDS: NS 1,000 ML IV SCH (20:20)
[2022-11-06 21:58] LABS: ALBUMIN 2.4 G/DL (3.2-5.2); ALKALINE PHOSPHATASE 73 U/L (46-116); ALT/SGPT 23 U/L (7.0-40); AST/SGOT 36 U/L (<34); BILIRUBIN,TOTAL 0.6 MG/DL (0.3-1.2); BLOOD UREA NITROGEN 14 MG/DL (9-23); CALCIUM LEVEL 7.7 MG/DL (8.3-10.6); CARBON DIOXIDE LEVEL 21 MMOL/L (20-31); CHLORIDE LEVEL 107 MMOL/L (98-107); CREATININE FOR GFR 0.39 MG/DL (0.55-1.30); GLOMERULAR FILTRATION RATE > 60.0 (>32); GLUCOSE, FASTING 256 MG/DL (74-106); SODIUM LEVEL 136 MMOL/L (136-145); TOTAL PROTEIN 4.4 G/DL (5.7-8.2)
[2022-11-06] MEDS: CHLORHEXIDINE GLUCONATE 0.12 % 15ML UDC (PERIDEX ORAL RINSE) MT SCH (22:15)
[2022-11-06] MEDS: PIPERACILLIN/TAZOBACTAM SOD 4.5 GM in D5W MINI-BAG PLUS 50 ML IV SCH (22:16)
[2022-11-07] VITALS (57 sets, daily range): BP systolic 88–196; BP diastolic 44–68
[2022-11-07 00:46] LABS: HEMATOCRIT 30.7 % (36.0-47.0); HEMOGLOBIN 10.2 g/dl (12.0-15.5)
[2022-11-07] MEDS: PIPERACILLIN/TAZOBACTAM SOD 4.5 GM in D5W MINI-BAG PLUS 50 ML IV SCH ×4 (02:57→19:43)
[2022-11-07] MEDS: EPINEPHrine HCL INJ 1 MG in D5W 240 ML IV SCH (02:58)
[2022-11-07 04:46] LABS: ABG BASE EXCESS -3.2 (-2.0-2.0); ABG HCO3 21.8 MEQ/L (22.0-26.0); ABG O2 SATURATION 96.9 % (95.0-99.0); ABG PARTIAL PRESSURE CO2 38.9 mmHg (35.0-45.0); ABG PARTIAL PRESSURE O2 90.3 mmHg (75.0-100.0); ABG STANDARD HCO3 21.8 MEQ/L (22.0-26.0); ABG pH (ARTERIAL) 7.366 UNITS (7.350-7.450)
[2022-11-07 04:53] LABS: HEMATOCRIT 30.7 % (36.0-47.0); HEMOGLOBIN 10.3 g/dl (12.0-15.5); MEAN CORPUSCULAR HEMOGLOBIN 31.5 pg (27.0-33.0); MEAN CORPUSCULAR HGB CONC 33.6 g/dl (32.0-36.5); MEAN CORPUSCULAR VOLUME 93.9 fl (80.0-96.0); PLATELET COUNT, AUTOMATED 228 10^3/uL (150-450); RED BLOOD COUNT 3.27 10^6/uL (4.00-5.40); WHITE BLOOD COUNT 14.9 10^3/uL (4.0-10.0)
[2022-11-07 05:17] LABS: MAGNESIUM LEVEL 1.6 MG/DL (1.8-2.4)
[2022-11-07] MEDS: MAG SULF 1GM/100ML (MAG RUN) 1 GM in IV 1 EA IV SCH ×2 (06:01→07:09)
[2022-11-07 06:03] LABS: ALBUMIN 2.5 G/DL (3.2-5.2); ALKALINE PHOSPHATASE 70 U/L (46-116); ALT/SGPT 21 U/L (7.0-40); AST/SGOT 26 U/L (<34); BILIRUBIN,TOTAL 0.4 MG/DL (0.3-1.2); BLOOD UREA NITROGEN 12 MG/DL (9-23); CALCIUM LEVEL 7.3 MG/DL (8.3-10.6); CARBON DIOXIDE LEVEL 22 MMOL/L (20-31); CHLORIDE LEVEL 106 MMOL/L (98-107); CREATININE FOR GFR 0.47 MG/DL (0.55-1.30); GLOMERULAR FILTRATION RATE > 60.0 (>32); GLUCOSE, FASTING 253 MG/DL (74-106); POTASSIUM SERUM 3.8 MMOL/L (3.5-5.1); SODIUM LEVEL 136 MMOL/L (136-145); TOTAL PROTEIN 4.7 G/DL (5.7-8.2)
[2022-11-07] MEDS ORDERED: fentaNYL 100 MCG/2 ML INJECTION IV ONE ×3 (08:05→18:35)
[2022-11-07] MEDS: CHLORHEXIDINE GLUCONATE 0.12 % 15ML UDC (PERIDEX ORAL RINSE) MT SCH (08:35)
[2022-11-07] MEDS: PANTOPRAZOLE 40MG VIAL IV SCH (08:35)
[2022-11-07] MEDS ORDERED: NORCO, ANEXSIA 5/325MG TABLET (HYDROcodone/ACETAMINOPHEN) PO PRN (11:05)
[2022-11-07] MEDS: ACETAMINOPHEN TAB 650MG DOSE (2X325MG) PO PRN ×2 (13:31→22:05)
[2022-11-07] MEDS: NS 1,000 ML IV SCH (18:15)
[2022-11-07] MEDS ORDERED: FUROSEMIDE 20MG/2ML VIAL IV ONE (19:35)
[2022-11-08] VITALS (24 sets, daily range): BP systolic 111–215; BP diastolic 45–82
[2022-11-08] MEDS ORDERED: OYST500T92 PO (00:07)
[2022-11-08] MEDS ORDERED: VITMTA PO (00:07)
[2022-11-08] MEDS ORDERED: HOME MED LIST COMPLETE! XX SCH (00:10)
[2022-11-08] MEDS ORDERED: NORCO, ANEXSIA 5/325MG TABLET (HYDROcodone/ACETAMINOPHEN) PO ONE (00:20)
[2022-11-08] MEDS ORDERED: traMADol 50 MG TAB PO ONE (00:30)
[2022-11-08] MEDS ORDERED: KETOROLAC 30 MG/ML 1ML VIAL IV ONE (02:30)
[2022-11-08] MEDS: PIPERACILLIN/TAZOBACTAM SOD 4.5 GM in D5W MINI-BAG PLUS 50 ML IV SCH ×4 (02:30→19:38)
[2022-11-08] MEDS: ACETAMINOPHEN TAB 650MG DOSE (2X325MG) PO PRN ×5 (03:08→23:40)
[2022-11-08 04:47] LABS: HEMATOCRIT 23.8 % (36.0-47.0); MEAN CORPUSCULAR HEMOGLOBIN 31.7 pg (27.0-33.0); MEAN CORPUSCULAR HGB CONC 33.2 g/dl (32.0-36.5); MEAN CORPUSCULAR VOLUME 95.6 fl (80.0-96.0); PLATELET COUNT, AUTOMATED 133 10^3/uL (150-450); RED BLOOD COUNT 2.49 10^6/uL (4.00-5.40); WHITE BLOOD COUNT 10.7 10^3/uL (4.0-10.0)
[2022-11-08 05:01] LABS: HEMOGLOBIN 7.9 g/dl (12.0-15.5)
[2022-11-08 05:07] LABS: ALBUMIN 2.4 G/DL (3.2-5.2); ALKALINE PHOSPHATASE 63 U/L (46-116); ALT/SGPT 18 U/L (7.0-40); AST/SGOT 24 U/L (<34); BILIRUBIN,TOTAL 0.4 MG/DL (0.3-1.2); BLOOD UREA NITROGEN 12 MG/DL (9-23); CALCIUM LEVEL 7.3 MG/DL (8.3-10.6); CARBON DIOXIDE LEVEL 28 MMOL/L (20-31); CHLORIDE LEVEL 106 MMOL/L (98-107); CREATININE FOR GFR 0.49 MG/DL (0.55-1.30); GLOMERULAR FILTRATION RATE > 60.0 (>32); GLUCOSE, FASTING 130 MG/DL (74-106); MAGNESIUM LEVEL 1.7 MG/DL (1.8-2.4); POTASSIUM SERUM 3.1 MMOL/L (3.5-5.1); SODIUM LEVEL 137 MMOL/L (136-145); TOTAL PROTEIN 4.4 G/DL (5.7-8.2)
[2022-11-08 06:11] LABS: ABG HCO3 29.4 MEQ/L (22.0-26.0); ABG O2 SATURATION 98.7 % (95.0-99.0); ABG PARTIAL PRESSURE CO2 48.5 mmHg (35.0-45.0); ABG PARTIAL PRESSURE O2 123.1 mmHg (75.0-100.0); ABG STANDARD HCO3 28.1 MEQ/L (22.0-26.0); ABG TOTAL CO2 30.9 MEQ/L (23.0-31.0)
[2022-11-08] MEDS ORDERED: MAGNESIUM OXIDE 400MG TAB (MAG-OX) PO ONE (07:55)
[2022-11-08] MEDS ORDERED: KCL 10MEQ/100ML SWI (KRUN) 10 MEQ in IV 1 EA IV ONE (08:00)
[2022-11-08] MEDS ORDERED: ISOVUE-370 76% 100ML VIAL As Ordered ONE (08:29)
[2022-11-08] MEDS: PANTOPRAZOLE 40MG VIAL IV SCH (08:56)
[2022-11-08] MEDS: CARVedilol 3.125 MG TAB PO SCH ×2 (08:58→13:11)
[2022-11-08] MEDS ORDERED: FUROSEMIDE 20MG/2ML VIAL IV ONE (09:35)
[2022-11-08] MEDS: ASPIRIN 81MG ENTERIC TABLET PO SCH (13:12)
[2022-11-08] MEDS: CLOPIDOGREL 75 MG TAB PO SCH (13:12)
[2022-11-08 13:44] LABS: HEMATOCRIT 24.9 % (36.0-47.0); HEMOGLOBIN 8.1 g/dl (12.0-15.5)
[2022-11-08 18:26] LABS: BLOOD UREA NITROGEN 9 MG/DL (9-23); CARBON DIOXIDE LEVEL 31 MMOL/L (20-31); CHLORIDE LEVEL 103 MMOL/L (98-107); CREATININE FOR GFR 0.48 MG/DL (0.55-1.30); GLOMERULAR FILTRATION RATE > 60.0 (>32); GLUCOSE, FASTING 106 MG/DL (74-106); MAGNESIUM LEVEL 1.8 MG/DL (1.8-2.4); POTASSIUM SERUM 3.1 MMOL/L (3.5-5.1); SODIUM LEVEL 136 MMOL/L (136-145)
[2022-11-08] MEDS: KCL 20MEQ IN 100ML SWI (KRUN) 20 MEQ in IV 1 EA IV SCH ×4 (19:38→21:17)
[2022-11-09] VITALS (13 sets, daily range): BP systolic 140–212; BP diastolic 71–124
[2022-11-09] MEDS: PIPERACILLIN/TAZOBACTAM SOD 4.5 GM in D5W MINI-BAG PLUS 50 ML IV SCH ×3 (01:16→16:01)
[2022-11-09] MEDS: ACETAMINOPHEN TAB 650MG DOSE (2X325MG) PO PRN ×3 (03:38→15:14)
[2022-11-09] MEDS ORDERED: FAMOTIDINE 20 MG TAB PO ONE (04:00)
[2022-11-09 04:06] LABS: HEMATOCRIT 26.3 % (36.0-47.0); HEMOGLOBIN 8.3 g/dl (12.0-15.5); MEAN CORPUSCULAR HEMOGLOBIN 30.9 pg (27.0-33.0); MEAN CORPUSCULAR HGB CONC 31.6 g/dl (32.0-36.5); MEAN CORPUSCULAR VOLUME 97.8 fl (80.0-96.0); PLATELET COUNT, AUTOMATED 188 10^3/uL (150-450); RED BLOOD COUNT 2.69 10^6/uL (4.00-5.40); WHITE BLOOD COUNT 10.8 10^3/uL (4.0-10.0)
[2022-11-09 04:36] LABS: BLOOD UREA NITROGEN 9 MG/DL (9-23); CALCIUM LEVEL 8.3 MG/DL (8.3-10.6); CARBON DIOXIDE LEVEL 30 MMOL/L (20-31); CHLORIDE LEVEL 104 MMOL/L (98-107); CREATININE FOR GFR 0.51 MG/DL (0.55-1.30); GLOMERULAR FILTRATION RATE > 60.0 (>32); GLUCOSE, FASTING 125 MG/DL (74-106); POTASSIUM SERUM 3.5 MMOL/L (3.5-5.1); SODIUM LEVEL 137 MMOL/L (136-145)
[2022-11-09] MEDS: CARVedilol 3.125 MG TAB PO SCH (08:32)
[2022-11-09] MEDS: ASPIRIN 81MG ENTERIC TABLET PO SCH (08:32)
[2022-11-09] MEDS: CLOPIDOGREL 75 MG TAB PO SCH (08:32)
[2022-11-09] MEDS: PANTOPRAZOLE 40MG VIAL IV SCH (08:32)
[2022-11-09] MEDS ORDERED: CHLORASEPTIC SPRAY MT PRN (08:50)
[2022-11-09] MEDS ORDERED: FUROSEMIDE 20MG/2ML VIAL IV ONE (11:30)
[2022-11-09] MEDS: DOCUSATE SODIUM 100MG CAPSULE PO SCH ×2 (11:43→20:32)
[2022-11-09 15:59] LABS: HEMOGLOBIN 8.8 g/dl (12.0-15.5)
[2022-11-09] MEDS ORDERED: ACETAMINOPHEN 1000MG 100ML IV BAG IV ONE (16:25)
[2022-11-09] MEDS: ADVAIR HFA 230/21MCG INHALER INH SCH (19:37)
[2022-11-09] MEDS: NORTRIPTYLINE 10 MG CAP PO SCH (20:31)
[2022-11-09] MEDS ORDERED: CARVedilol 6.25 MG TAB PO SCH (21:00)
[2022-11-10] VITALS (21 sets, daily range): BP systolic 70–207; BP diastolic 30–95
[2022-11-10] MEDS ORDERED: CARVedilol 6.25 MG TAB PO ONE (01:00)
[2022-11-10] MEDS: ACETAMINOPHEN TAB 650MG DOSE (2X325MG) PO PRN ×3 (01:05→15:09)
[2022-11-10] MEDS ORDERED: cloNIDine HCL 0.1 MG/24 HR PATCH TOP ONE (02:00)
[2022-11-10] MEDS ORDERED: ISOSORBIDE MON. (IMDUR) 30MG XR TAB PO ONE (07:15)
[2022-11-10 07:58] LABS: HEMATOCRIT 29.8 % (36.0-47.0); HEMOGLOBIN 9.4 g/dl (12.0-15.5); MEAN CORPUSCULAR HEMOGLOBIN 30.7 pg (27.0-33.0); MEAN CORPUSCULAR HGB CONC 31.5 g/dl (32.0-36.5); MEAN CORPUSCULAR VOLUME 97.4 fl (80.0-96.0); PLATELET COUNT, AUTOMATED 243 10^3/uL (150-450); RED BLOOD COUNT 3.06 10^6/uL (4.00-5.40); WHITE BLOOD COUNT 7.9 10^3/uL (4.0-10.0)
[2022-11-10] MEDS: ADVAIR HFA 230/21MCG INHALER INH SCH ×2 (08:02→20:15)
[2022-11-10 08:26] LABS: ALBUMIN 2.9 G/DL (3.2-5.2); ALKALINE PHOSPHATASE 81 U/L (46-116); ALT/SGPT 21 U/L (7.0-40); AST/SGOT 42 U/L (<34); BLOOD UREA NITROGEN 8 MG/DL (9-23); CALCIUM LEVEL 8.8 MG/DL (8.3-10.6); CARBON DIOXIDE LEVEL 29 MMOL/L (20-31); CHLORIDE LEVEL 101 MMOL/L (98-107); CREATININE FOR GFR 0.39 MG/DL (0.55-1.30); GLOMERULAR FILTRATION RATE > 60.0 (>32); GLUCOSE, FASTING 135 MG/DL (74-106); POTASSIUM SERUM 3.3 MMOL/L (3.5-5.1); SODIUM LEVEL 134 MMOL/L (136-145); TOTAL PROTEIN 5.9 G/DL (5.7-8.2)
[2022-11-10] MEDS: ASPIRIN 81MG ENTERIC TABLET PO SCH (08:47)
[2022-11-10] MEDS: CLOPIDOGREL 75 MG TAB PO SCH (08:48)
[2022-11-10] MEDS: FAMOTIDINE 20 MG TAB PO SCH (08:48)
[2022-11-10] MEDS: DOCUSATE SODIUM 100MG CAPSULE PO SCH (09:00)
[2022-11-10] MEDS ORDERED: SPIRONOLACTONE 25 MG TAB PO SCH (09:00)
[2022-11-10] MEDS ORDERED: POTASSIUM CHLORIDE 10MEQ SR TABLET PO ONE (09:25)
[2022-11-10] MEDS: CARVedilol 12.5 MG TAB PO SCH ×2 (09:44→20:49)
[2022-11-10] MEDS: NORTRIPTYLINE 10 MG CAP PO SCH (20:49)
[2022-11-11] VITALS (66 sets, daily range): BP systolic 68–224; BP diastolic 39–106
[2022-11-11] MEDS ORDERED: hydroCHLOROthiazide 12.5 MG CAPSULE PO ONE ×2 (03:00→05:30)
[2022-11-11 05:01] LABS: HEMATOCRIT 28.6 % (36.0-47.0); HEMOGLOBIN 9.5 g/dl (12.0-15.5); MEAN CORPUSCULAR HEMOGLOBIN 32.1 pg (27.0-33.0); MEAN CORPUSCULAR HGB CONC 33.2 g/dl (32.0-36.5); MEAN CORPUSCULAR VOLUME 96.6 fl (80.0-96.0); PLATELET COUNT, AUTOMATED 253 10^3/uL (150-450); RED BLOOD COUNT 2.96 10^6/uL (4.00-5.40); WHITE BLOOD COUNT 7.3 10^3/uL (4.0-10.0)
[2022-11-11] MEDS: ACETAMINOPHEN TAB 650MG DOSE (2X325MG) PO PRN ×3 (05:41→15:30)
[2022-11-11] MEDS: ADVAIR HFA 230/21MCG INHALER INH SCH ×2 (07:28→19:23)
[2022-11-11] MEDS: ASPIRIN 81MG ENTERIC TABLET PO SCH (08:32)
[2022-11-11] MEDS: FAMOTIDINE 20 MG TAB PO SCH (08:32)
[2022-11-11] MEDS: CLOPIDOGREL 75 MG TAB PO SCH (08:32)
[2022-11-11] MEDS: CARVedilol 12.5 MG TAB PO SCH ×2 (08:33→21:04)
[2022-11-11] MEDS: LACTOBACILLUS ACIDOPHILUS CAP (BACID) PO SCH (18:59)
[2022-11-11] MEDS: NORTRIPTYLINE 10 MG CAP PO SCH (21:04)
[2022-11-12] VITALS (21 sets, daily range): BP systolic 101–212; BP diastolic 49–100
[2022-11-12 05:27] LABS: HEMATOCRIT 29.1 % (36.0-47.0); HEMOGLOBIN 9.7 g/dl (12.0-15.5); MEAN CORPUSCULAR HEMOGLOBIN 31.3 pg (27.0-33.0); MEAN CORPUSCULAR HGB CONC 33.3 g/dl (32.0-36.5); MEAN CORPUSCULAR VOLUME 93.9 fl (80.0-96.0); PLATELET COUNT, AUTOMATED 284 10^3/uL (150-450); WHITE BLOOD COUNT 8.4 10^3/uL (4.0-10.0)
[2022-11-12] MEDS: ADVAIR HFA 230/21MCG INHALER INH SCH ×2 (07:59→20:33)
[2022-11-12] MEDS: ACETAMINOPHEN TAB 650MG DOSE (2X325MG) PO PRN ×3 (08:47→23:34)
[2022-11-12] MEDS: CLOPIDOGREL 75 MG TAB PO SCH (08:47)
[2022-11-12] MEDS: FAMOTIDINE 20 MG TAB PO SCH (08:48)
[2022-11-12] MEDS: ASPIRIN 81MG ENTERIC TABLET PO SCH (08:48)
[2022-11-12] MEDS: CARVedilol 12.5 MG TAB PO SCH ×2 (08:48→21:22)
[2022-11-12 12:27] LABS: BLOOD UREA NITROGEN 17 MG/DL (9-23); CALCIUM LEVEL 8.9 MG/DL (8.3-10.6); CARBON DIOXIDE LEVEL 29 MMOL/L (20-31); CHLORIDE LEVEL 95 MMOL/L (98-107); CREATININE FOR GFR 0.46 MG/DL (0.55-1.30); GLOMERULAR FILTRATION RATE > 60.0 (>32); GLUCOSE, FASTING 143 MG/DL (74-106); SODIUM LEVEL 130 MMOL/L (136-145)
[2022-11-12] MEDS ORDERED: POTASSIUM CHLORIDE 10MEQ SR TABLET PO ONE ×2 (13:00→23:15)
[2022-11-12] MEDS ORDERED: NS 500 ML IV ONE (14:05)
[2022-11-12] MEDS ORDERED: MECLIZINE 25 MG TABLET PO PRN (16:50)
[2022-11-12 18:11] LABS: BLOOD UREA NITROGEN 17 MG/DL (9-23); CALCIUM LEVEL 8.8 MG/DL (8.3-10.6); CARBON DIOXIDE LEVEL 26 MMOL/L (20-31); CHLORIDE LEVEL 100 MMOL/L (98-107); CREATININE FOR GFR 0.43 MG/DL (0.55-1.30); GLOMERULAR FILTRATION RATE > 60.0 (>32); GLUCOSE, FASTING 109 MG/DL (74-106); POTASSIUM SERUM 3.4 MMOL/L (3.5-5.1); SODIUM LEVEL 132 MMOL/L (136-145)
[2022-11-12] MEDS: LACTOBACILLUS ACIDOPHILUS CAP (BACID) PO SCH (18:25)
[2022-11-12 19:45] LABS: HEMOGLOBIN A1c 5.6 % (4.0-6.0)
[2022-11-12] MEDS ORDERED: metFORMIN XR 500MG TAB *GLUCOPHAGE XR PO SCH (21:00)
[2022-11-12] MEDS: HEPARIN SOD (PORCINE) 5000UNITS/ML 1ML VIAL/SYRINGE SQ SCH (21:21)
[2022-11-12] MEDS: ASCORBIC ACID 500 MG TAB PO SCH (21:23)
[2022-11-12] MEDS: EZETIMIBE 10MG TABLET (ZETIA) PO SCH (21:23)
[2022-11-12] MEDS: NORTRIPTYLINE 10 MG CAP PO SCH (21:24)
[2022-11-13] VITALS (10 sets, daily range): BP systolic 131–180; BP diastolic 60–93
[2022-11-13 05:09] LABS: HEMATOCRIT 30.7 % (36.0-47.0); MEAN CORPUSCULAR HEMOGLOBIN 31.3 pg (27.0-33.0); MEAN CORPUSCULAR HGB CONC 32.6 g/dl (32.0-36.5); MEAN CORPUSCULAR VOLUME 96.2 fl (80.0-96.0); PLATELET COUNT, AUTOMATED 341 10^3/uL (150-450); RED BLOOD COUNT 3.19 10^6/uL (4.00-5.40); WHITE BLOOD COUNT 8.3 10^3/uL (4.0-10.0)
[2022-11-13 05:35] LABS: CORTISOL AM 4.2 UG/DL (4.3-22.4)
[2022-11-13 05:37] LABS: BLOOD UREA NITROGEN 17 MG/DL (9-23); CALCIUM LEVEL 8.5 MG/DL (8.3-10.6); CARBON DIOXIDE LEVEL 26 MMOL/L (20-31); CHLORIDE LEVEL 104 MMOL/L (98-107); CREATININE FOR GFR 0.43 MG/DL (0.55-1.30); GLOMERULAR FILTRATION RATE > 60.0 (>32); GLUCOSE, FASTING 117 MG/DL (74-106); MAGNESIUM LEVEL 1.7 MG/DL (1.8-2.4); POTASSIUM SERUM 3.9 MMOL/L (3.5-5.1); SODIUM LEVEL 135 MMOL/L (136-145)
[2022-11-13 05:39] LABS: FREE T3 3.2 PG/ML (2.3-4.2)
[2022-11-13 05:40] LABS: FREE T4 1.16 NG/DL (0.89-1.76)
[2022-11-13] MEDS: ADVAIR HFA 230/21MCG INHALER INH SCH ×2 (07:50→20:49)
[2022-11-13] MEDS: CLOPIDOGREL 75 MG TAB PO SCH (08:15)
[2022-11-13] MEDS: CARVedilol 12.5 MG TAB PO SCH (08:15)
[2022-11-13] MEDS: ASPIRIN 81MG ENTERIC TABLET PO SCH (08:16)
[2022-11-13] MEDS: ASCORBIC ACID 500 MG TAB PO SCH ×2 (08:16→21:06)
[2022-11-13] MEDS: FAMOTIDINE 20 MG TAB PO SCH (08:16)
[2022-11-13] MEDS: HEPARIN SOD (PORCINE) 5000UNITS/ML 1ML VIAL/SYRINGE SQ SCH ×2 (08:17→21:03)
[2022-11-13] MEDS: MAGNESIUM OXIDE 400MG TAB (MAG-OX) PO SCH ×2 (11:55→21:05)
[2022-11-13] MEDS: ACETAMINOPHEN TAB 650MG DOSE (2X325MG) PO PRN ×2 (13:08→22:43)
[2022-11-13] MEDS ORDERED: COSYNTROPIN 0.25 MG/ML 1ML VIAL IV ONE (16:00)
[2022-11-13] MEDS: LACTOBACILLUS ACIDOPHILUS CAP (BACID) PO SCH (17:57)
[2022-11-13] MEDS ORDERED: metFORMIN XR 500MG TAB *GLUCOPHAGE XR PO SCH (21:00)
[2022-11-13] MEDS: NORTRIPTYLINE 10 MG CAP PO SCH (21:03)
[2022-11-13] MEDS: EZETIMIBE 10MG TABLET (ZETIA) PO SCH (21:04)
[2022-11-13] MEDS: CARVedilol 3.125 MG TAB PO SCH (21:04)
[2022-11-13] MEDS ORDERED: FAMOTIDINE 20 MG TAB PO ONE (23:05)
[2022-11-14] VITALS (7 sets, daily range): BP systolic 118–181; BP diastolic 58–119
[2022-11-14 05:01] LABS: HEMATOCRIT 29.4 % (36.0-47.0); HEMOGLOBIN 9.4 g/dl (12.0-15.5); MEAN CORPUSCULAR HEMOGLOBIN 31.3 pg (27.0-33.0); PLATELET COUNT, AUTOMATED 377 10^3/uL (150-450); WHITE BLOOD COUNT 8.9 10^3/uL (4.0-10.0)
[2022-11-14 05:39] LABS: BLOOD UREA NITROGEN 18 MG/DL (9-23); CARBON DIOXIDE LEVEL 26 MMOL/L (20-31); CHLORIDE LEVEL 102 MMOL/L (98-107); CREATININE FOR GFR 0.49 MG/DL (0.55-1.30); GLOMERULAR FILTRATION RATE > 60.0 (>32); GLUCOSE, FASTING 111 MG/DL (74-106); MAGNESIUM LEVEL 1.8 MG/DL (1.8-2.4); POTASSIUM SERUM 4.4 MMOL/L (3.5-5.1); SODIUM LEVEL 135 MMOL/L (136-145)
[2022-11-14] MEDS ORDERED: COSYNTROPIN 0.25 MG/ML 1ML VIAL IV ONE (06:00)
[2022-11-14] MEDS: ADVAIR HFA 230/21MCG INHALER INH SCH (07:56)
[2022-11-14] MEDS: ACETAMINOPHEN TAB 650MG DOSE (2X325MG) PO PRN (09:05)
[2022-11-14] MEDS: ASPIRIN 81MG ENTERIC TABLET PO SCH (09:05)
[2022-11-14] MEDS: CLOPIDOGREL 75 MG TAB PO SCH (09:06)
[2022-11-14] MEDS: CARVedilol 3.125 MG TAB PO SCH (09:06)
[2022-11-14] MEDS: FAMOTIDINE 20 MG TAB PO SCH (09:06)
[2022-11-14] MEDS: ASCORBIC ACID 500 MG TAB PO SCH (09:06)
[2022-11-14] MEDS: MAGNESIUM OXIDE 400MG TAB (MAG-OX) PO SCH (09:06)
[2022-11-14] MEDS: HEPARIN SOD (PORCINE) 5000UNITS/ML 1ML VIAL/SYRINGE SQ SCH (09:07)
[2022-11-14] MEDS ORDERED: FAMO20TA PO (11:21)
[2022-11-14] MEDS ORDERED: CARV3.12 PO ×2 (11:21→12:59)
[2022-11-14] MEDS ORDERED: ASPI81TAEC PO (11:21)
[2022-11-14] MEDS ORDERED: METF-838 PO (11:52)
[2022-11-17 01:07] LABS: CREATININE,RANDOM URINE 46.9 mg/dL (Not Estab.); URINE METANEPHR/CREAT RATIO 1.6 (0.0-1.0)
== END 2022-11-14 14:00 | DRG 907 ==
LOC: M SDC 10:01 → M ICU 17:57
PROVIDERS: ADMIT Surgery Vascular Surgery; ATTEND Internal Medicine
PROC: 047 Lower Arteries, Dilation (ICD-10-PCS; 2022-11-06)
PROC: 5A1935Z Respiratory Ventilation, Less than 24 Consecutive Hours (ICD-10-PCS; 2022-11-06)
PROC: 30233N1 Transfusion of Nonautologous Red Blood Cells into Peripheral Vein, Percutaneous Approach (ICD-10-PCS; 2022-11-06)
PROC: 04QK0ZZ Repair Right Femoral Artery, Open Approach (ICD-10-PCS; principal; 2022-11-06 11:30)
DX: I97.418 Intraoperative hemorrhage and hematoma of a circulatory system organ or structure complicating other circulatory system procedure (principal); J96.01 Acute respiratory failure with hypoxia; I77.72 Dissection of iliac artery; D62 Acute posthemorrhagic anemia; E87.1 Hypo-osmolality and hyponatremia; G90.3 Multi-system degeneration of the autonomic nervous system; I15.0 Renovascular hypertension; I25.10 Atherosclerotic heart disease of native coronary artery without angina pectoris; K21.9 Gastro-esophageal reflux disease without esophagitis; T81.19XA Other postprocedural shock, initial encounter; I77.1 Stricture of artery; J45.909 Unspecified asthma, uncomplicated; I95.9 Hypotension, unspecified; E78.5 Hyperlipidemia, unspecified; Z85.42 Personal history of malignant neoplasm of other parts of uterus; Z92.21 Personal history of antineoplastic chemotherapy; Z79.82 Long term (current) use of aspirin; Z79.899 Other long term (current) drug therapy; Z88.2 Allergy status to sulfonamides; Z88.5 Allergy status to narcotic agent; Z88.8 Allergy status to other drugs, medicaments and biological substances; F41.9 Anxiety disorder, unspecified; F32.A Depression, unspecified; R73.03 Prediabetes

== ENCOUNTER 2022-11-14 14:15 | Inpatient (IN) | payer MEDICARE, OTHER ==
[~2022-11-14] VITALS: Ht 157.5 cm; Wt 73.2 kg
[2022-11-14 14:00] VITALS: BP 145/67
[~2022-11-14 14:15] MED LIST changes: +ASPI81TAEC PO; +CARV3.12 PO; -LIDOCAINE 2% 100MG/5ML SDV (FOR ANES.) As Ordered ONE; -LR 1,000 ML IV SCH; -MIDAZOLAM INJ 2MG/2ML VIAL As Ordered ONE; -ONDANSETRON 4MG 2ML VIAL As Ordered ONE; +OYST500T92 PO; -ROCURONIUM BROMIDE 50MG/5ML VIAL As Ordered ONE; +VITMTA PO; -ceFAZolin SOD 2 GM in IV 1 EA IV ONE; -fentaNYL 100 MCG/2 ML INJECTION As Ordered ONE; -propofoL 200 MG/20 ML VIAL As Ordered ONE
[2022-11-14] MEDS ORDERED: ACETAMINOPHEN 500 MG TAB PO ONE (15:20)
[2022-11-14] MEDS ORDERED: RAMELTEON 8 MG TAB (ROZEREM) PO PRN (15:30)
[2022-11-14] MEDS ORDERED: GLUCOSE 4GM CHEW TABLET PO PRN (15:30)
[2022-11-14] MEDS ORDERED: GLUCAGON INJ 1MG VIAL SC PRN (15:30)
[2022-11-14] MEDS ORDERED: DEXTROSE 50% 50ML SYRINGE IV PRN (15:30)
[2022-11-14] MEDS: REMEDY PHYTOPLEX Z-GUARD PASTE 113GM TUBE (FROM STOREROOM PRODUCT) TOP SCH ×2 (15:52→20:33)
[2022-11-14] MEDS: LACTOBACILLUS ACIDOPHILUS CAP (BACID) PO SCH (17:10)
[2022-11-14] MEDS: SUCRALFATE 1 GM TAB PO SCH (17:10)
[2022-11-14] MEDS ORDERED: INSULIN LISPRO (NovoLOG) PER UNIT SC SCH ×2 (17:30→21:00)
[2022-11-14 20:00] VITALS: BP 173/72
[2022-11-14] MEDS: EZETIMIBE 10MG TABLET (ZETIA) PO SCH (20:30)
[2022-11-14] MEDS: PANTOPRAZOLE 40MG TAB (PROTONIX) PO SCH (20:31)
[2022-11-14] MEDS: ACETAMINOPHEN 650MG ER TAB (TYLENOL ARTHRITIS) PO SCH (20:31)
[2022-11-14] MEDS: CARVedilol 3.125 MG TAB PO SCH (20:31)
[2022-11-14] MEDS: ASCORBIC ACID 500 MG TAB PO SCH (20:31)
[2022-11-14] MEDS ORDERED: NORTRIPTYLINE 10 MG CAP PO SCH (21:00)
[2022-11-14] MEDS: ADVAIR HFA 230/21MCG INHALER INH SCH (21:31)
[2022-11-14] MEDS: COMBIVENT RESPIMAT 100-20MCG INHALER 4GM INH SCH (21:31)
[2022-11-15] MEDS: ACETAMINOPHEN 650MG ER TAB (TYLENOL ARTHRITIS) PO SCH ×3 (05:14→20:34)
[2022-11-15] MEDS: CARVedilol 3.125 MG TAB PO SCH (05:31)
[2022-11-15 06:00] VITALS: BP 200/90
[2022-11-15 06:29] VITALS: BP 164/70
[2022-11-15 06:41] LABS: BASO % 0.5 % (0.0-1.0); HEMATOCRIT 30.2 % (36.0-47.0); HEMOGLOBIN 9.7 g/dl (12.0-15.5); LYMPH # 1.3 10^3/uL (1.5-5.0); LYMPH % 16.8 % (24.0-44.0); MEAN CORPUSCULAR HEMOGLOBIN 31.8 pg (27.0-33.0); MEAN CORPUSCULAR HGB CONC 32.1 g/dl (32.0-36.5); MONO # 0.9 10^3/uL (0.0-0.8); MONO % 11.1 % (2.0-8.0); NEUTROPHILS # 5.6 10^3/uL (1.5-8.5); NEUTROPHILS % 70.6 % (36.0-66.0); PLATELET COUNT, AUTOMATED 393 10^3/uL (150-450); RED BLOOD COUNT 3.05 10^6/uL (4.00-5.40); WHITE BLOOD COUNT 7.9 10^3/uL (4.0-10.0)
[2022-11-15 07:04] LABS: ALBUMIN 2.8 G/DL (3.2-5.2); ALKALINE PHOSPHATASE 87 U/L (46-116); ALT/SGPT 19 U/L (7.0-40); AST/SGOT 21 U/L (<34); BILIRUBIN,TOTAL 0.7 MG/DL (0.3-1.2); BLOOD UREA NITROGEN 14 MG/DL (9-23); CALCIUM LEVEL 8.8 MG/DL (8.3-10.6); CARBON DIOXIDE LEVEL 26 MMOL/L (20-31); CHLORIDE LEVEL 101 MMOL/L (98-107); CREATININE FOR GFR 0.46 MG/DL (0.55-1.30); GLOMERULAR FILTRATION RATE > 60.0 (>32); GLUCOSE, FASTING 139 MG/DL (74-106); SODIUM LEVEL 134 MMOL/L (136-145); TOTAL PROTEIN 5.6 G/DL (5.7-8.2)
[2022-11-15] MEDS: COMBIVENT RESPIMAT 100-20MCG INHALER 4GM INH SCH ×3 (07:26→21:06)
[2022-11-15] MEDS: ADVAIR HFA 230/21MCG INHALER INH SCH ×2 (07:27→21:06)
[2022-11-15] MEDS: CLOPIDOGREL 75 MG TAB PO SCH (08:46)
[2022-11-15] MEDS: ASCORBIC ACID 500 MG TAB PO SCH ×2 (08:46→20:33)
[2022-11-15] MEDS: MAGNESIUM OXIDE 400MG TAB (MAG-OX) PO SCH (08:46)
[2022-11-15] MEDS: SUCRALFATE 1 GM TAB PO SCH ×3 (08:46→17:11)
[2022-11-15] MEDS: ASPIRIN 81MG ENTERIC TABLET PO SCH (08:47)
[2022-11-15] MEDS: PANTOPRAZOLE 40MG TAB (PROTONIX) PO SCH ×2 (08:47→20:33)
[2022-11-15] MEDS: REMEDY PHYTOPLEX Z-GUARD PASTE 113GM TUBE (FROM STOREROOM PRODUCT) TOP SCH ×3 (08:49→20:36)
[2022-11-15] MEDS ORDERED: CARVedilol 3.125 MG TAB PO SCH ×2 (09:00→21:00)
[2022-11-15 14:00] VITALS: BP 192/74
[2022-11-15] MEDS: ENOXAPARIN 40MG/0.4ML SYRINGE (J1650 PER 10MG) SC SCH (17:11)
[2022-11-15] MEDS: LACTOBACILLUS ACIDOPHILUS CAP (BACID) PO SCH (17:11)
[2022-11-15 19:20] VITALS: BP 177/79
[2022-11-15] MEDS: traZODone 25MG PER 1/2 TABLET PO SCH (20:33)
[2022-11-15] MEDS: RAMELTEON 8 MG TAB (ROZEREM) PO SCH (20:34)
[2022-11-15] MEDS: EZETIMIBE 10MG TABLET (ZETIA) PO SCH (20:34)
[2022-11-15] MEDS: NORTRIPTYLINE 25 MG CAP PO SCH (20:34)
[2022-11-15] MEDS ORDERED: CARVedilol 12.5 MG TAB PO SCH (21:00)
[2022-11-16 05:30] VITALS: BP 210/100
[2022-11-16] MEDS: ACETAMINOPHEN 650MG ER TAB (TYLENOL ARTHRITIS) PO SCH ×3 (05:47→21:14)
[2022-11-16] MEDS: MIRALAX *UNIT DOSE* 17GM PACKET PO PRN (05:47)
[2022-11-16] MEDS ORDERED: cloNIDine HCL 0.2 MG/24 HR PATCH TOP ONE (06:00)
[2022-11-16] MEDS: ADVAIR HFA 230/21MCG INHALER INH SCH ×2 (07:12→20:04)
[2022-11-16] MEDS: COMBIVENT RESPIMAT 100-20MCG INHALER 4GM INH SCH ×3 (07:12→20:00)
[2022-11-16] MEDS: ASCORBIC ACID 500 MG TAB PO SCH ×2 (08:22→21:14)
[2022-11-16] MEDS: PANTOPRAZOLE 40MG TAB (PROTONIX) PO SCH ×2 (08:22→21:14)
[2022-11-16] MEDS: SUCRALFATE 1 GM TAB PO SCH ×3 (08:22→17:21)
[2022-11-16] MEDS: ASPIRIN 81MG ENTERIC TABLET PO SCH (08:22)
[2022-11-16] MEDS: MAGNESIUM OXIDE 400MG TAB (MAG-OX) PO SCH (08:22)
[2022-11-16] MEDS: ENOXAPARIN 40MG/0.4ML SYRINGE (J1650 PER 10MG) SC SCH (08:22)
[2022-11-16] MEDS: CLOPIDOGREL 75 MG TAB PO SCH (08:24)
[2022-11-16] MEDS: REMEDY PHYTOPLEX Z-GUARD PASTE 113GM TUBE (FROM STOREROOM PRODUCT) TOP SCH ×3 (08:25→21:00)
[2022-11-16] MEDS ORDERED: HOME MED LIST COMPLETE! XX SCH (08:30)
[2022-11-16] MEDS ORDERED: CARVedilol 3.125 MG TAB PO SCH ×2 (09:00)
[2022-11-16] MEDS ORDERED: lisinopriL 5 MG TAB PO PRN (09:10)
[2022-11-16 14:00] VITALS: BP 152/74
[2022-11-16] MEDS: CARVedilol 3.125 MG TAB PO SCH (17:23)
[2022-11-16] MEDS: LACTOBACILLUS ACIDOPHILUS CAP (BACID) PO SCH (17:24)
[2022-11-16] MEDS ORDERED: CARVedilol 12.5 MG TAB PO SCH (18:00)
[2022-11-16 20:00] VITALS: BP 152/78
[2022-11-16] MEDS: EZETIMIBE 10MG TABLET (ZETIA) PO SCH (21:14)
[2022-11-16] MEDS: RAMELTEON 8 MG TAB (ROZEREM) PO SCH (21:14)
[2022-11-16] MEDS: traZODone 25MG PER 1/2 TABLET PO SCH (21:14)
[2022-11-16] MEDS: NORTRIPTYLINE 25 MG CAP PO SCH (21:14)
[2022-11-16] MEDS ORDERED: FAMOTIDINE 20 MG TAB PO ONE (22:50)
[2022-11-17 05:30] VITALS: BP 210/100
[2022-11-17] MEDS: CARVedilol 3.125 MG TAB PO SCH ×2 (05:36→17:57)
[2022-11-17] MEDS: ACETAMINOPHEN 650MG ER TAB (TYLENOL ARTHRITIS) PO SCH ×3 (05:36→21:15)
[2022-11-17 06:00] VITALS: BP 210/100
[2022-11-17 06:33] VITALS: BP 152/70
[2022-11-17] MEDS: ADVAIR HFA 230/21MCG INHALER INH SCH ×2 (07:12→21:02)
[2022-11-17] MEDS: COMBIVENT RESPIMAT 100-20MCG INHALER 4GM INH SCH ×3 (07:12→20:00)
[2022-11-17] MEDS: ENOXAPARIN 40MG/0.4ML SYRINGE (J1650 PER 10MG) SC SCH (09:00)
[2022-11-17] MEDS: REMEDY PHYTOPLEX Z-GUARD PASTE 113GM TUBE (FROM STOREROOM PRODUCT) TOP SCH ×3 (09:00→21:17)
[2022-11-17] MEDS: CLOPIDOGREL 75 MG TAB PO SCH (09:55)
[2022-11-17] MEDS: SUCRALFATE 1 GM TAB PO SCH ×3 (09:55→17:56)
[2022-11-17] MEDS: ASCORBIC ACID 500 MG TAB PO SCH ×2 (09:55→21:17)
[2022-11-17] MEDS: MAGNESIUM OXIDE 400MG TAB (MAG-OX) PO SCH (09:55)
[2022-11-17] MEDS: PANTOPRAZOLE 40MG TAB (PROTONIX) PO SCH ×2 (09:55→21:17)
[2022-11-17] MEDS: ASPIRIN 81MG ENTERIC TABLET PO SCH (09:55)
[2022-11-17] MEDS: MIRALAX *UNIT DOSE* 17GM PACKET PO PRN (11:30)
[2022-11-17 14:00] VITALS: BP 132/60
[2022-11-17] MEDS: LACTOBACILLUS ACIDOPHILUS CAP (BACID) PO SCH (17:55)
[2022-11-17 20:00] VITALS: BP 148/66
[2022-11-17] MEDS: NORTRIPTYLINE 25 MG CAP PO SCH (21:16)
[2022-11-17] MEDS: RAMELTEON 8 MG TAB (ROZEREM) PO SCH (21:16)
[2022-11-17] MEDS: EZETIMIBE 10MG TABLET (ZETIA) PO SCH (21:16)
[2022-11-17] MEDS: traZODone 25MG PER 1/2 TABLET PO SCH (21:17)
[2022-11-18] MEDS ORDERED: diphenhydrAMINE 50MG/ML VIAL IV ONE (04:00)
[2022-11-18] MEDS ORDERED: PROCHLORPERAZINE 10MG 2ML VIAL IV ONE (04:00)
[2022-11-18] MEDS: ACETAMINOPHEN 650MG ER TAB (TYLENOL ARTHRITIS) PO SCH ×3 (05:57→21:35)
[2022-11-18 06:00] VITALS: BP 150/84
[2022-11-18] MEDS: CARVedilol 3.125 MG TAB PO SCH ×2 (06:51→17:11)
[2022-11-18 07:32] VITALS: BP 152/74
[2022-11-18] MEDS: ADVAIR HFA 230/21MCG INHALER INH SCH ×2 (07:33→20:08)
[2022-11-18] MEDS: COMBIVENT RESPIMAT 100-20MCG INHALER 4GM INH SCH ×3 (07:33→20:08)
[2022-11-18] MEDS: SUCRALFATE 1 GM TAB PO SCH ×3 (08:44→17:14)
[2022-11-18] MEDS: ASPIRIN 81MG ENTERIC TABLET PO SCH (08:44)
[2022-11-18] MEDS: PANTOPRAZOLE 40MG TAB (PROTONIX) PO SCH ×2 (08:44→21:36)
[2022-11-18] MEDS: ASCORBIC ACID 500 MG TAB PO SCH ×2 (08:44→21:37)
[2022-11-18] MEDS: CLOPIDOGREL 75 MG TAB PO SCH (08:44)
[2022-11-18] MEDS: MAGNESIUM OXIDE 400MG TAB (MAG-OX) PO SCH (08:44)
[2022-11-18] MEDS: ENOXAPARIN 40MG/0.4ML SYRINGE (J1650 PER 10MG) SC SCH (08:45)
[2022-11-18] MEDS: REMEDY PHYTOPLEX Z-GUARD PASTE 113GM TUBE (FROM STOREROOM PRODUCT) TOP SCH ×3 (08:46→21:38)
[2022-11-18 11:30] LABS: BASO % 0.4 % (0.0-1.0); HEMATOCRIT 31.5 % (36.0-47.0); LYMPH % 10.1 % (24.0-44.0); MEAN CORPUSCULAR HEMOGLOBIN 31.9 pg (27.0-33.0); MEAN CORPUSCULAR HGB CONC 31.7 g/dl (32.0-36.5); MEAN CORPUSCULAR VOLUME 100.6 fl (80.0-96.0); MONO # 1.1 10^3/uL (0.0-0.8); NEUTROPHILS # 7.2 10^3/uL (1.5-8.5); NEUTROPHILS % 75.9 % (36.0-66.0); PLATELET COUNT, AUTOMATED 480 10^3/uL (150-450); RED BLOOD COUNT 3.13 10^6/uL (4.00-5.40); WHITE BLOOD COUNT 9.5 10^3/uL (4.0-10.0)
[2022-11-18 11:55] LABS: BLOOD UREA NITROGEN 16 MG/DL (9-23); CARBON DIOXIDE LEVEL 28 MMOL/L (20-31); CHLORIDE LEVEL 101 MMOL/L (98-107); CREATININE FOR GFR 0.52 MG/DL (0.55-1.30); GLOMERULAR FILTRATION RATE > 60.0 (>32); GLUCOSE, FASTING 110 MG/DL (74-106); POTASSIUM SERUM 4.3 MMOL/L (3.5-5.1); SODIUM LEVEL 135 MMOL/L (136-145)
[2022-11-18 14:00] VITALS: BP 138/70
[2022-11-18 17:11] VITALS: BP 130/65
[2022-11-18] MEDS: LACTOBACILLUS ACIDOPHILUS CAP (BACID) PO SCH (17:14)
[2022-11-18 20:00] VITALS: BP 142/70
[2022-11-18] MEDS: RAMELTEON 8 MG TAB (ROZEREM) PO SCH (21:35)
[2022-11-18] MEDS: traZODone 25MG PER 1/2 TABLET PO SCH (21:36)
[2022-11-18] MEDS: EZETIMIBE 10MG TABLET (ZETIA) PO SCH (21:36)
[2022-11-18] MEDS: NORTRIPTYLINE 25 MG CAP PO SCH (21:36)
[2022-11-18] MEDS: MICONAZOLE-7 VAGINAL 2% CREAM 47.7GM PV SCH (21:37)
[2022-11-19] MEDS: CARVedilol 3.125 MG TAB PO SCH ×2 (05:50→18:11)
[2022-11-19] MEDS: ACETAMINOPHEN 650MG ER TAB (TYLENOL ARTHRITIS) PO SCH ×3 (05:51→20:58)
[2022-11-19 06:00] VITALS: BP 154/90
[2022-11-19] MEDS: COMBIVENT RESPIMAT 100-20MCG INHALER 4GM INH SCH ×3 (07:13→21:15)
[2022-11-19] MEDS: ADVAIR HFA 230/21MCG INHALER INH SCH ×2 (07:13→21:15)
[2022-11-19] MEDS: SUCRALFATE 1 GM TAB PO SCH ×3 (08:37→18:10)
[2022-11-19] MEDS: ASPIRIN 81MG ENTERIC TABLET PO SCH (08:38)
[2022-11-19] MEDS: MAGNESIUM OXIDE 400MG TAB (MAG-OX) PO SCH (08:38)
[2022-11-19] MEDS: CLOPIDOGREL 75 MG TAB PO SCH (08:38)
[2022-11-19] MEDS: PANTOPRAZOLE 40MG TAB (PROTONIX) PO SCH ×2 (08:38→20:58)
[2022-11-19] MEDS: ENOXAPARIN 40MG/0.4ML SYRINGE (J1650 PER 10MG) SC SCH ×2 (08:39→09:00)
[2022-11-19] MEDS: REMEDY PHYTOPLEX Z-GUARD PASTE 113GM TUBE (FROM STOREROOM PRODUCT) TOP SCH ×3 (08:39→20:59)
[2022-11-19] MEDS: ASCORBIC ACID 500 MG TAB PO SCH ×2 (08:39→20:58)
[2022-11-19 14:00] VITALS: BP 158/78
[2022-11-19] MEDS: LACTOBACILLUS ACIDOPHILUS CAP (BACID) PO SCH (18:10)
[2022-11-19 20:00] VITALS: BP 146/88
[2022-11-19] MEDS: RAMELTEON 8 MG TAB (ROZEREM) PO SCH (20:57)
[2022-11-19] MEDS: EZETIMIBE 10MG TABLET (ZETIA) PO SCH (20:57)
[2022-11-19] MEDS: NORTRIPTYLINE 25 MG CAP PO SCH (20:58)
[2022-11-19] MEDS: traZODone 25MG PER 1/2 TABLET PO SCH (20:58)
[2022-11-19] MEDS: MICONAZOLE-7 VAGINAL 2% CREAM 47.7GM PV SCH (21:00)
[2022-11-20] MEDS: CARVedilol 3.125 MG TAB PO SCH ×2 (05:14→17:33)
[2022-11-20] MEDS: ACETAMINOPHEN 650MG ER TAB (TYLENOL ARTHRITIS) PO SCH ×3 (05:14→21:09)
[2022-11-20 06:00] VITALS: BP 156/88
[2022-11-20 06:12] LABS: BASO # 0.1 10^3/uL (0.0-0.2); BASO % 0.4 % (0.0-1.0); HEMATOCRIT 33.1 % (36.0-47.0); HEMOGLOBIN 10.6 g/dl (12.0-15.5); LYMPH # 1.3 10^3/uL (1.5-5.0); LYMPH % 11.4 % (24.0-44.0); MONO % 8.8 % (2.0-8.0); NEUTROPHILS # 8.9 10^3/uL (1.5-8.5); NEUTROPHILS % 78.7 % (36.0-66.0); PLATELET COUNT, AUTOMATED 480 10^3/uL (150-450); RED BLOOD COUNT 3.31 10^6/uL (4.00-5.40); WHITE BLOOD COUNT 11.4 10^3/uL (4.0-10.0)
[2022-11-20 06:41] LABS: BLOOD UREA NITROGEN 13 MG/DL (9-23); CALCIUM LEVEL 8.9 MG/DL (8.3-10.6); CARBON DIOXIDE LEVEL 25 MMOL/L (20-31); CHLORIDE LEVEL 101 MMOL/L (98-107); CREATININE FOR GFR 0.43 MG/DL (0.55-1.30); GLOMERULAR FILTRATION RATE > 60.0 (>32); GLUCOSE, FASTING 112 MG/DL (74-106); POTASSIUM SERUM 4.2 MMOL/L (3.5-5.1); SODIUM LEVEL 133 MMOL/L (136-145)
[2022-11-20] MEDS: COMBIVENT RESPIMAT 100-20MCG INHALER 4GM INH SCH ×3 (07:24→20:06)
[2022-11-20] MEDS: ADVAIR HFA 230/21MCG INHALER INH SCH ×2 (07:24→20:06)
[2022-11-20] MEDS: PANTOPRAZOLE 40MG TAB (PROTONIX) PO SCH ×2 (08:43→21:09)
[2022-11-20] MEDS: CLOPIDOGREL 75 MG TAB PO SCH (08:44)
[2022-11-20] MEDS: MAGNESIUM OXIDE 400MG TAB (MAG-OX) PO SCH (08:44)
[2022-11-20] MEDS: SUCRALFATE 1 GM TAB PO SCH ×3 (08:44→17:31)
[2022-11-20] MEDS: ENOXAPARIN 40MG/0.4ML SYRINGE (J1650 PER 10MG) SC SCH ×2 (08:44→08:47)
[2022-11-20] MEDS: ASPIRIN 81MG ENTERIC TABLET PO SCH (08:44)
[2022-11-20] MEDS: ASCORBIC ACID 500 MG TAB PO SCH ×2 (08:45→21:09)
[2022-11-20] MEDS: REMEDY PHYTOPLEX Z-GUARD PASTE 113GM TUBE (FROM STOREROOM PRODUCT) TOP SCH ×3 (08:45→21:00)
[2022-11-20 15:48] VITALS: BP 160/82
[2022-11-20] MEDS: LORATADINE 10 MG TAB PO SCH (16:20)
[2022-11-20] MEDS ORDERED: FIORICET TAB PO PRN (16:40)
[2022-11-20] MEDS ORDERED: traMADol 50 MG TAB PO PRN (16:45)
[2022-11-20] MEDS ORDERED: PILL CUTTER 1 EACH XX PRN (16:50)
[2022-11-20] MEDS: LACTOBACILLUS ACIDOPHILUS CAP (BACID) PO SCH (17:31)
[2022-11-20] MEDS: IBUPROFEN 400MG TAB PO PRN (17:31)
[2022-11-20 20:42] VITALS: BP 152/66
[2022-11-20] MEDS: traZODone 25MG PER 1/2 TABLET PO SCH (21:00)
[2022-11-20] MEDS: EZETIMIBE 10MG TABLET (ZETIA) PO SCH (21:09)
[2022-11-20] MEDS: NORTRIPTYLINE 25 MG CAP PO SCH (21:09)
[2022-11-20] MEDS: RAMELTEON 8 MG TAB (ROZEREM) PO SCH (21:10)
[2022-11-20] MEDS: MICONAZOLE-7 VAGINAL 2% CREAM 47.7GM PV SCH (21:13)
[2022-11-21 05:34] VITALS: BP 210/78
[2022-11-21] MEDS: ACETAMINOPHEN 650MG ER TAB (TYLENOL ARTHRITIS) PO SCH (05:34)
[2022-11-21 05:35] VITALS: BP 210/78
[2022-11-21] MEDS: CARVedilol 3.125 MG TAB PO SCH (05:35)
[2022-11-21] MEDS: IBUPROFEN 400MG TAB PO PRN (05:39)
[2022-11-21 06:36] VITALS: BP 172/70
[2022-11-21] MEDS: ADVAIR HFA 230/21MCG INHALER INH SCH (07:27)
[2022-11-21] MEDS: COMBIVENT RESPIMAT 100-20MCG INHALER 4GM INH SCH ×2 (07:27→13:18)
[2022-11-21] MEDS: CLOPIDOGREL 75 MG TAB PO SCH (08:15)
[2022-11-21] MEDS: ASCORBIC ACID 500 MG TAB PO SCH (08:15)
[2022-11-21] MEDS: PANTOPRAZOLE 40MG TAB (PROTONIX) PO SCH (08:15)
[2022-11-21] MEDS: MAGNESIUM OXIDE 400MG TAB (MAG-OX) PO SCH (08:15)
[2022-11-21] MEDS: SUCRALFATE 1 GM TAB PO SCH ×2 (08:15→11:39)
[2022-11-21] MEDS: ASPIRIN 81MG ENTERIC TABLET PO SCH (08:15)
[2022-11-21] MEDS: LORATADINE 10 MG TAB PO SCH (08:16)
[2022-11-21] MEDS: REMEDY PHYTOPLEX Z-GUARD PASTE 113GM TUBE (FROM STOREROOM PRODUCT) TOP SCH (08:16)
[2022-11-21] MEDS: ENOXAPARIN 40MG/0.4ML SYRINGE (J1650 PER 10MG) SC SCH (08:16)
[2022-11-21] MEDS ORDERED: LevoFLOXacin 250 MG TABLET PO SCH (09:55)
[2022-11-21] MEDS ORDERED: ASPI81TAEC PO (10:09)
[2022-11-21] MEDS ORDERED: ADV250INH INH (10:09)
[2022-11-21] MEDS ORDERED: CLOP75TA2 PO (10:09)
[2022-11-21] MEDS ORDERED: NORT25CA2 PO (10:09)
[2022-11-21] MEDS ORDERED: NEXI40CA PO (10:09)
[2022-11-21] MEDS ORDERED: EZET10TA21 PO (10:09)
[2022-11-21] MEDS ORDERED: CARV3.12 PO (10:09)
[2022-11-21] MEDS ORDERED: LEVO1TAB38 PO (10:09)
[2022-11-21] MEDS ORDERED: FAMO20TA PO (10:09)
[2022-11-21 14:00] VITALS: BP 154/66
== END 2022-11-21 14:05 | disposition home health service (06) | DRG 699 ==
LOC: M PM&R 14:15
PROVIDERS: ADMIT Physical Medicine & Rehabilitation; ATTEND Physical Medicine & Rehabilitation
DX: I70.1 Atherosclerosis of renal artery (principal); E87.1 Hypo-osmolality and hyponatremia; I11.0 Hypertensive heart disease with heart failure; E78.5 Hyperlipidemia, unspecified; I25.10 Atherosclerotic heart disease of native coronary artery without angina pectoris; Z95.5 Presence of coronary angioplasty implant and graft; G62.0 Drug-induced polyneuropathy; Z74.09 Other reduced mobility; Z74.1 Need for assistance with personal care; R53.1 Weakness; Z95.828 Presence of other vascular implants and grafts; Z79.82 Long term (current) use of aspirin; Z79.02 Long term (current) use of antithrombotics/antiplatelets; Z79.899 Other long term (current) drug therapy; Z88.2 Allergy status to sulfonamides; Z88.5 Allergy status to narcotic agent; Z88.8 Allergy status to other drugs, medicaments and biological substances; Z85.42 Personal history of malignant neoplasm of other parts of uterus; I95.1 Orthostatic hypotension; J45.909 Unspecified asthma, uncomplicated; K21.9 Gastro-esophageal reflux disease without esophagitis; R19.7 Diarrhea, unspecified

== ENCOUNTER → 2023-01-05 | Outpatient (CLI) | payer MEDICARE, OTHER ==
[~2023-01-05] MED LIST changes: +LEVO1TAB38 PO; +NORT25CA2 PO
== END ==
LOC: M RAD 09:12
PROVIDERS: ATTEND Surgery Vascular Surgery
DX: I15.0 Renovascular hypertension (principal)

== ENCOUNTER → 2023-01-23 | Outpatient (CLI) | payer MEDICARE, OTHER | LOC: M WHC 14:57 | PROVIDERS: ATTEND Family Medicine | DX: Z12.31 Encounter for screening mammogram for malignant neoplasm of breast (principal) ==

== ENCOUNTER → 2023-03-27 | Outpatient (REF) | payer MEDICARE, OTHER | LOC: M SFHCCLAY 16:30 | PROVIDERS: ATTEND Family Medicine | DX: I11.9 Hypertensive heart disease without heart failure (principal); E11.40 Type 2 diabetes mellitus with diabetic neuropathy, unspecified ==

== ENCOUNTER → 2023-08-30 | Outpatient (REF) | payer MEDICARE, OTHER ==
[~2023-08-30] MED LIST changes: +MECL-209 PO; -MECL1TAB31 PO
== END ==
LOC: M SFHCCLAY 15:46
PROVIDERS: ATTEND Family Medicine
DX: B34.9 Viral infection, unspecified (principal)

== ENCOUNTER → 2024-01-28 | Outpatient (CLI) | payer MEDICARE, OTHER ==
[~2024-01-28] MED LIST changes: -ALBU90AE INH; +ALBU90AE2 INH
== END ==
LOC: M WHC 13:45
PROVIDERS: ATTEND Family Medicine
DX: Z12.31 Encounter for screening mammogram for malignant neoplasm of breast (principal)

== ENCOUNTER → 2024-02-25 | Outpatient (CLI) | payer MEDICARE, OTHER | LOC: M SOG 13:29 | PROVIDERS: ATTEND Orthopaedic Surgery Hand Surgery | DX: M18.11 Unilateral primary osteoarthritis of first carpometacarpal joint, right hand (principal) ==

== ENCOUNTER → 2024-03-13 | Outpatient (CLI) | payer MEDICARE, OTHER | LOC: M RAD 10:15 | PROVIDERS: ATTEND Nurse Practitioner Family | DX: I82.402 Acute embolism and thrombosis of unspecified deep veins of left lower extremity (principal) ==

== ENCOUNTER 2024-04-28 08:52 | Day surgery (SDC) | payer MEDICARE, OTHER ==
[~2024-04-28] VITALS: Ht 154.9 cm; Wt 70.8 kg
[~2024-04-28 08:52] MED LIST changes: +CARV12.5 PO; +FAMO1TAB11 PO; +THERTAB52 PO
[2024-04-28] MEDS ORDERED: LR 1,000 ML IV SCH (10:30)
[2024-04-28] MEDS ORDERED: fentaNYL 100 MCG/2 ML INJECTION As Ordered ONE (10:33)
[2024-04-28] MEDS ORDERED: LIDOCAINE 2% 100MG/5ML SDV (FOR ANES.) As Ordered ONE (10:34)
[2024-04-28] MEDS ORDERED: propofoL 200 MG/20 ML VIAL As Ordered ONE (10:36)
[2024-04-28] MEDS ORDERED: METF-838 PO (10:46)
[2024-04-28] MEDS ORDERED: DOCU100C16 PO (10:46)
[2024-04-28] MEDS ORDERED: TORS10TA3 PO (10:46)
[2024-04-28] MEDS ORDERED: AMIL5TAB4 PO (10:46)
[2024-04-28] MEDS: ceFAZolin SOD 2 GM in IV 1 EA IV ONE (11:40)
[2024-04-28] MEDS: BACITRACIN OINTMENT 30GM TUBE As Ordered ONE (12:00)
[2024-04-28 13:00] VITALS: BP 172/98; TEMP 96.9; O2SAT 97
== END 2024-04-28 13:08 | disposition home or self-care (01) ==
LOC: M SDC 08:52
PROVIDERS: ATTEND Orthopaedic Surgery Hand Surgery
DX: M67.441 Ganglion, right hand (principal); I25.10 Atherosclerotic heart disease of native coronary artery without angina pectoris; E78.5 Hyperlipidemia, unspecified; K21.9 Gastro-esophageal reflux disease without esophagitis; Z98.61 Coronary angioplasty status; Z88.5 Allergy status to narcotic agent; Z88.8 Allergy status to other drugs, medicaments and biological substances; Z88.2 Allergy status to sulfonamides; Z79.51 Long term (current) use of inhaled steroids; Z79.899 Other long term (current) drug therapy; J45.909 Unspecified asthma, uncomplicated
CPT/HCPCS: 25111; 88305; J0665; J0690; J3010

== ENCOUNTER → 2024-10-01 | Outpatient (CLI) | payer MEDICARE, OTHER ==
[~2024-10-01] MED LIST changes: -ADV250INH INH; +ADVA1AER9 INH; +AMIL5TAB4 PO; +TORS10TA3 PO
== END ==
LOC: M CLY 15:21
PROVIDERS: ATTEND Nurse Practitioner Family
DX: S59.901A Unspecified injury of right elbow, initial encounter (principal); X58.XXXA Exposure to other specified factors, initial encounter; Y92.9 Unspecified place or not applicable

== ENCOUNTER → 2024-10-01 | Outpatient (REF) | payer MEDICARE, OTHER | LOC: M SFHCCLAY 14:58 | PROVIDERS: ATTEND Nurse Practitioner Family | DX: I10 Essential (primary) hypertension (principal); K21.9 Gastro-esophageal reflux disease without esophagitis; E11.40 Type 2 diabetes mellitus with diabetic neuropathy, unspecified; Z95.5 Presence of coronary angioplasty implant and graft; J45.30 Mild persistent asthma, uncomplicated; I89.0 Lymphedema, not elsewhere classified; I87.2 Venous insufficiency (chronic) (peripheral); G25.81 Restless legs syndrome; Z78.0 Asymptomatic menopausal state ==

== ENCOUNTER → 2024-10-06 | Outpatient (REF) | payer MEDICARE, OTHER ==
[2024-10-06 17:24] LABS: CRYSTALS, BODY FLUID NONE SEEN (NONE SEEN); SOURCE, BODY FLUID RT ELBOW; SOURCE, BODY FLUID CRYSTALS RT ELBOW; SYNOVIAL FLUID COLOR RED (COLORLESS)
== END ==
LOC: M LAB REF 17:04
PROVIDERS: ATTEND Orthopaedic Surgery
DX: M70.21 Olecranon bursitis, right elbow (principal)

== ENCOUNTER → 2024-10-08 | Outpatient (CLI) | payer MEDICARE, OTHER | LOC: M WHC 12:43 | PROVIDERS: ATTEND Nurse Practitioner Family | DX: M85.89 Other specified disorders of bone density and structure, multiple sites (principal); Z78.0 Asymptomatic menopausal state ==

== ENCOUNTER → 2024-10-13 | Outpatient (CLI) | payer MEDICARE, OTHER | LOC: M SOG 08:20 | PROVIDERS: ATTEND Orthopaedic Surgery | DX: M70.21 Olecranon bursitis, right elbow (principal); M79.89 Other specified soft tissue disorders ==

== ENCOUNTER → 2024-10-24 | Outpatient (CLI) | payer MEDICARE, OTHER | LOC: M RAD 09:11 | PROVIDERS: ATTEND Physician Assistant | DX: I70.1 Atherosclerosis of renal artery (principal) ==

== ENCOUNTER → 2025-04-27 | Outpatient (CLI) | payer MEDICARE, OTHER ==
[~2025-04-27] MED LIST changes: +ACET-1515 PO; -ACET650T15 PO; -EZET10TA21 PO; +EZET10TA57 PO; +SLOW1TAB3 PO; -SLOWTAB2 PO
== END ==
LOC: M RAD 09:04
PROVIDERS: ATTEND Physician Assistant
DX: I70.1 Atherosclerosis of renal artery (principal)

== ENCOUNTER → 2025-07-08 | Outpatient (REF) | payer MEDICARE, OTHER ==
[2025-07-08 17:41] LABS: CHOLESTEROL LEVEL 246.0 MG/DL (<200); CHOLESTEROL RISK RATIO 4.49 (<5); LDL CHOLESTEROL 134.1 MG/DL (<100); NON-HDL-C 191.3 MG/DL; TRIGLYCERIDES LEVEL 286.0 MG/DL (<150)
== END ==
LOC: M SFHCCLAY 11:43
PROVIDERS: ATTEND Physician Assistant
DX: E11.40 Type 2 diabetes mellitus with diabetic neuropathy, unspecified (principal)